=== PATIENT | female | born 1955 | race Caucasian/White ===

== ENCOUNTER → 2023-03-23 | Outpatient (CLI) | payer OTHER ==
[2023-03-23 06:35] LABS: Basophils # (auto) 0 10 ^3/uL (0-0.2); Basophils % (auto) 0.3 % (0.0-2.0); Eosinophils # (auto) 0 10 ^3/uL (0-0.8); Hematocrit 38.6 % (36.0-46.0); Hemoglobin 12.8 g/dL (12.2-16.2); Lymphocytes # (auto) 2.4 10 ^3/uL (0.4-5.4); Lymphocytes % (auto) 21.4 % (10.0-50.0); Mean Corpuscular Hemoglobin 29.8 pg (28.0-32.0); Mean Corpuscular Hgb Conc. 33.1 g/dL (32.0-36.0); Monocytes # (auto) 0.6 10 ^3/uL (0-1.3); Monocytes % (auto) 5.2 % (0.0-12.0); Neutrophils # (auto) 8.3 10 ^3/uL (1.6-8.6); Neutrophils % (auto) 73.1 % (37.0-80.0); Red Blood Cells 4.29 10^6/uL (4.0-5.20); Red Cell Distribution Width 13.1 % (11.8-14.3); White Blood Cell 11.4 10^3/uL (4.4-10.8)
[2023-03-23 06:47] LABS: Urine Bacteria NONE SEEN /hpf (None Seen); Urine Blood Negative /uL (Negative); Urine Specific Gravity 1.015 (1.001-1.035); Urine WBC 2 /hpf (0 - 5)
[2023-03-23 07:07] LABS: Potassium 3.9 mmol/L (3.5-5.1)
[2023-03-23 07:15] LABS: Albumin 4.2 g/dL (3.4-5.0); BUN/Creatinine Ratio 14.4 (10.0-20.0); Bilirubin, Total 0.3 mg/dL (0.2-1.0); Calcium 9.1 mg/dL (8.5-10.1); Total Protein 7.2 g/dL (6.4-8.2); Uric Acid 4.5 mg/dL (2.6-6.0)
[2023-03-23 11:20] LABS: Folate (Folic Acid) 8.3 ng/mL (5.38-24)
== END | disposition home or self-care (01) ==
LOC: LAB 03-17 10:19
PROVIDERS: ATTEND Internal Medicine
DX: D51.9 Vitamin B12 deficiency anemia, unspecified (principal); E55.9 Vitamin D deficiency, unspecified; R73.09 Other abnormal glucose; E61.2 Magnesium deficiency; R68.89 Other general symptoms and signs; R94.6 Abnormal results of thyroid function studies; E79.0 Hyperuricemia without signs of inflammatory arthritis and tophaceous disease; R82.79 Other abnormal findings on microbiological examination of urine; R82.90 Unspecified abnormal findings in urine
CPT/HCPCS: 36415; 80053; 80061; 81001; 82306; 82607; 82746; 83036; 84443; 84550; 85025; 87086

== ENCOUNTER 2023-08-10 09:05 | Emergency (ER) | payer OTHER ==
[~2023-08-10] VITALS: Ht 172.7 cm; Wt 87.3 kg
[2023-08-10 09:09] VITALS: BP 130/85; RESP 20; O2SAT 100
[2023-08-10 09:28] VITALS: PULSE 82
[2023-08-10 09:46] LABS: Basophils # (auto) 0 10 ^3/uL (0-0.2); Basophils % (auto) 0.4 % (0.0-2.0); Eosinophils # (auto) 0 10 ^3/uL (0-0.8); Eosinophils % (auto) 0.2 % (0.0-7.0); Hematocrit 38.5 % (36.0-46.0); Hemoglobin 12.6 g/dL (12.2-16.2); Lymphocytes # (auto) 3.4 10 ^3/uL (0.4-5.4); Lymphocytes % (auto) 32.2 % (10.0-50.0); Mean Corpuscular Hemoglobin 29.7 pg (28.0-32.0); Mean Corpuscular Hgb Conc. 32.8 g/dL (32.0-36.0); Mean Corpuscular Volume 90.6 fL (80.0-100.0); Monocytes # (auto) 1.1 10 ^3/uL (0-1.3); Monocytes % (auto) 10.6 % (0.0-12.0); Neutrophils % (auto) 56.6 % (37.0-80.0); Red Blood Cells 4.25 10^6/uL (4.0-5.20); Red Cell Distribution Width 13.6 % (11.8-14.3); White Blood Cell 10.7 10^3/uL (4.4-10.8)
[2023-08-10 10:18] LABS: Urine Bacteria NONE SEEN /hpf (None Seen); Urine Blood Negative /uL (Negative); Urine Clarity Clear (Clear); Urine Color Colorless (Yellow); Urine Protein, UAD Negative (Negative); Urine Specific Gravity 1.012 (1.001-1.035); Urine Urobilinogen Normal (Negative); Urine WBC <1 /hpf (0 - 5)
[2023-08-10 10:27] LABS: Alanine Aminotransferase 14 U/L (7-40); Albumin 4.6 g/dL (3.2-4.8); Alkaline Phosphatase 72 U/L (46-116); Anion Gap 4 (5-15); Aspartate Aminotransferase < 8 U/L (13-40); BUN/Creatinine Ratio 9.6 (10.0-20.0); Blood Urea Nitrogen 12 mg/dL (9-23); Calcium 9.9 mg/dL (8.7-10.4); Carbon Dioxide 28 mmol/L (20-30); Chloride 107 mmol/L (98-107); Glucose 101 mg/dL (74-106); Lipase 45 U/L (12-53); Potassium 3.8 mmol/L (3.5-5.1); Sodium 139 mmol/L (136-145)
[2023-08-10 10:28] LABS: Bilirubin, Total 0.4 mg/dL (0.2-1.0); Total Protein 6.8 g/dL (5.7-8.2)
== END 2023-08-10 13:07 | disposition home or self-care (01) ==
LOC: ER 09:05
DX: R10.84 Generalized abdominal pain (principal); J44.9 Chronic obstructive pulmonary disease, unspecified; K21.9 Gastro-esophageal reflux disease without esophagitis; E78.5 Hyperlipidemia, unspecified; F17.210 Nicotine dependence, cigarettes, uncomplicated; Z88.2 Allergy status to sulfonamides; Z90.49 Acquired absence of other specified parts of digestive tract; Z90.89 Acquired absence of other organs; Z90.710 Acquired absence of both cervix and uterus; Z98.890 Other specified postprocedural states
CPT/HCPCS: 36415; 74176; 80053; 81001; 82140; 83690; 83735; 85025; 93005

== ENCOUNTER → 2023-09-27 | Outpatient (CLI) | payer OTHER ==
[2023-09-27 07:17] LABS: Basophils # (auto) 0.1 10 ^3/uL (0-0.2); Basophils % (auto) 0.9 % (0.0-2.0); Eosinophils # (auto) 0.1 10 ^3/uL (0-0.8); Eosinophils % (auto) 1.3 % (0.0-7.0); Hemoglobin 12.6 g/dL (12.2-16.2); Lymphocytes # (auto) 2.8 10 ^3/uL (0.4-5.4); Lymphocytes % (auto) 44.6 % (10.0-50.0); Mean Corpuscular Hemoglobin 29.6 pg (28.0-32.0); Mean Corpuscular Hgb Conc. 32.3 g/dL (32.0-36.0); Mean Corpuscular Volume 91.6 fL (80.0-100.0); Monocytes # (auto) 0.6 10 ^3/uL (0-1.3); Monocytes % (auto) 10.2 % (0.0-12.0); Neutrophils # (auto) 2.7 10 ^3/uL (1.6-8.6); Red Blood Cells 4.26 10^6/uL (4.0-5.20); Red Cell Distribution Width 14.8 % (11.8-14.3); White Blood Cell 6.2 10^3/uL (4.4-10.8)
[2023-09-27 07:26] LABS: Urine Bacteria FEW /hpf (None Seen); Urine Blood Negative /uL (Negative); Urine Clarity Clear (Clear); Urine Color Yellow (Yellow); Urine Protein, UAD Negative (Negative); Urine Urobilinogen Normal (Negative); Urine WBC <1 /hpf (0 - 5)
[2023-09-27 08:00] LABS: Alanine Aminotransferase 18 U/L (7-40); Albumin 4.5 g/dL (3.2-4.8); Alkaline Phosphatase 75 U/L (46-116); Anion Gap 7 (5-15); Aspartate Aminotransferase 13 U/L (13-40); Blood Urea Nitrogen 13 mg/dL (9-23); Calcium 9.6 mg/dL (8.5-10.1); Carbon Dioxide 24 mmol/L (20-30); Chloride 110 mmol/L (98-107); Cholesterol 206 mg/dL (< 200); Glucose 111 mg/dL (74-106); HDL Cholesterol 42 mg/dL (40-59); LDL Cholesterol 137 mg/dL (< 100); Sodium 141 mmol/L (136-145); Triglycerides 186 mg/dL (< 150)
[2023-09-27 08:01] LABS: Bilirubin, Total 0.3 mg/dL (0.2-1.0); Total Protein 6.3 g/dL (5.7-8.2)
[2023-09-27 09:01] LABS: Uric Acid 5.8 mg/dL (3.1-7.8)
[2023-09-27 09:03] LABS: Magnesium 1.8 mg/dL (1.6-2.6)
[2023-09-27 10:37] LABS: Folate (Folic Acid) 11.89 ng/mL (>5.38)
== END | disposition home or self-care (01) ==
LOC: LAB 07:00
PROVIDERS: ATTEND Internal Medicine
DX: E61.2 Magnesium deficiency (principal); R78.89 Finding of other specified substances, not normally found in blood; E78.9 Disorder of lipoprotein metabolism, unspecified; R68.89 Other general symptoms and signs; E79.0 Hyperuricemia without signs of inflammatory arthritis and tophaceous disease; R94.6 Abnormal results of thyroid function studies; E85.9 Amyloidosis, unspecified; R82.90 Unspecified abnormal findings in urine; R82.991 Hypocitraturia; R82.79 Other abnormal findings on microbiological examination of urine; D51.9 Vitamin B12 deficiency anemia, unspecified
CPT/HCPCS: 36415; 80053; 80061; 81001; 82306; 82607; 82746; 83036; 83735; 84443; 84550; 85025; 87086

== ENCOUNTER → 2023-12-23 | Outpatient (CLI) | payer OTHER ==
[2023-12-23 09:12] LABS: Basophils # (auto) 0 10 ^3/uL (0-0.2); Basophils % (auto) 0.3 % (0.0-2.0); Eosinophils # (auto) 0.1 10 ^3/uL (0-0.8); Eosinophils % (auto) 0.7 % (0.0-7.0); Hematocrit 38.4 % (36.0-46.0); Hemoglobin 12.5 g/dL (12.2-16.2); Lymphocytes # (auto) 2.8 10 ^3/uL (0.4-5.4); Lymphocytes % (auto) 31.2 % (10.0-50.0); Mean Corpuscular Hemoglobin 29.5 pg (28.0-32.0); Mean Corpuscular Hgb Conc. 32.6 g/dL (32.0-36.0); Mean Corpuscular Volume 90.4 fL (80.0-100.0); Monocytes # (auto) 0.9 10 ^3/uL (0-1.3); Monocytes % (auto) 9.9 % (0.0-12.0); Neutrophils # (auto) 5.3 10 ^3/uL (1.6-8.6); Neutrophils % (auto) 57.9 % (37.0-80.0); Nucleated Red Blood Cells % 0.1 %; Red Blood Cells 4.25 10^6/uL (4.0-5.20); Red Cell Distribution Width 12.6 % (11.8-14.3); White Blood Cell 9.1 10^3/uL (4.4-10.8)
[2023-12-23 09:42] LABS: Urine Bacteria FEW /hpf (None Seen); Urine Blood Negative /uL (Negative); Urine Clarity HAZY (Clear); Urine Color Straw (Yellow); Urine Protein, UAD Negative (Negative); Urine Specific Gravity 1.008 (1.001-1.035); Urine Urobilinogen Normal (Negative); Urine WBC 96 /hpf (0 - 5); Urine pH 5.5 (5.0-8.0)
[2023-12-23 10:26] LABS: Alanine Aminotransferase 26 U/L (7-40); Albumin 4.4 g/dL (3.2-4.8); Alkaline Phosphatase 78 U/L (46-116); Anion Gap 5 (5-15); Aspartate Aminotransferase 18 U/L (13-40); Blood Urea Nitrogen 17 mg/dL (9-23); Calcium 9.6 mg/dL (8.5-10.1); Carbon Dioxide 28 mmol/L (20-30); Chloride 107 mmol/L (98-107); Cholesterol 184 mg/dL (< 200); Glucose 114 mg/dL (74-106); HDL Cholesterol 51 mg/dL (40-59); LDL Cholesterol 117 mg/dL (< 100); Potassium 3.8 mmol/L (3.5-5.1); Sodium 140 mmol/L (136-145); Triglycerides 121 mg/dL (< 150)
[2023-12-23 10:27] LABS: Total Protein 6.5 g/dL (5.7-8.2)
[2023-12-23 10:36] LABS: Folate (Folic Acid) 11.52 ng/mL (>5.38)
[2023-12-23 10:51] LABS: Uric Acid 5.8 mg/dL (3.1-7.8)
[2023-12-23 10:53] LABS: Magnesium 1.9 mg/dL (1.6-2.6)
[2023-12-23 10:54] LABS: Bilirubin, Total 0.6 mg/dL (0.2-1.0)
== END | disposition home or self-care (01) ==
LOC: LAB 08:47
PROVIDERS: ATTEND Internal Medicine
DX: E61.2 Magnesium deficiency (principal); E78.9 Disorder of lipoprotein metabolism, unspecified; R78.89 Finding of other specified substances, not normally found in blood; R68.89 Other general symptoms and signs; E79.0 Hyperuricemia without signs of inflammatory arthritis and tophaceous disease; R94.6 Abnormal results of thyroid function studies; R82.991 Hypocitraturia; R82.90 Unspecified abnormal findings in urine; D51.9 Vitamin B12 deficiency anemia, unspecified; E85.9 Amyloidosis, unspecified
CPT/HCPCS: 36415; 80053; 80061; 81001; 82306; 82607; 82746; 83036; 83735; 84443; 84550; 85025; 87086

== ENCOUNTER 2024-05-23 14:57 | Inpatient (IN) | payer OTHER ==
[~2024-05-23] VITALS: Ht 172.7 cm; Wt 81.4 kg
[2024-05-23] MEDS: ALBUTEROL SULF 2.5 MG/0.5ML(0.5%) NEB SOLN NEB ONE (15:46)
[2024-05-23] MEDS: IPRATROPIUM BROM 0.5 MG/2.5ML INH SOL NEB ONE (15:46)
[2024-05-23 15:48] VITALS: RESP 20; O2SAT 96
[2024-05-23 15:49] LABS: Basophils # (auto) 0.2 10 ^3/uL (0-0.2); Basophils % (auto) 1.3 % (0.0-2.0); Eosinophils # (auto) 0.8 10 ^3/uL (0-0.8); Eosinophils % (auto) 6.7 % (0.0-7.0); Hematocrit 37.6 % (36.0-46.0); Hemoglobin 12.1 g/dL (12.2-16.2); Lymphocytes # (auto) 1.7 10 ^3/uL (0.4-5.4); Lymphocytes % (auto) 14.8 % (10.0-50.0); Mean Corpuscular Hemoglobin 27.9 pg (28.0-32.0); Mean Corpuscular Hgb Conc. 32.3 g/dL (32.0-36.0); Mean Corpuscular Volume 86.2 fL (80.0-100.0); Monocytes # (auto) 0.9 10 ^3/uL (0-1.3); Monocytes % (auto) 7.4 % (0.0-12.0); Neutrophils # (auto) 8.1 10 ^3/uL (1.6-8.6); Neutrophils % (auto) 69.8 % (37.0-80.0); Red Blood Cells 4.36 10^6/uL (4.0-5.20); White Blood Cell 11.6 10^3/uL (4.4-10.8)
[2024-05-23 16:00] LABS: Chloride 106 mmol/L (98-107); Potassium 4.3 mmol/L (3.5-5.1); Sodium 140 mmol/L (136-145)
[2024-05-23 16:01] LABS: Anion Gap 9 (5-15); Carbon Dioxide 25 mmol/L (20-30)
[2024-05-23 16:02] LABS: Calcium 9.9 mg/dL (8.7-10.4)
[2024-05-23] MEDS: methylPREDNISolone SOD SUCC 125 MG/2 ML VL IV ONE (16:04)
[2024-05-23 16:06] LABS: BUN/Creatinine Ratio 12.7 (10.0-20.0); Blood Urea Nitrogen 16 mg/dL (9-23); Glucose 104 mg/dL (74-106)
[2024-05-23 16:24] LABS: Urine Bacteria FEW /hpf (None Seen); Urine Blood 1+ /uL (Negative); Urine Clarity Ex.Turbid (Clear); Urine Color Light-Orange (Yellow); Urine Mucus FEW (None Seen); Urine Protein, UAD 1+ (Negative); Urine Specific Gravity 1.027 (1.001-1.035); Urine Urobilinogen 3 mg/dL (Negative); Urine WBC 976 /hpf (0 - 5); Urine WBC Clumps PRESENT /hpf (None Seen); Urine pH 5.5 (5.0-9.0)
[2024-05-23] MEDS: cefTRIAXone 1GM/50ML D5W 50 ML IV ONE (17:20)
[2024-05-23] MEDS ORDERED: NITROGLYCERIN 0.4 MG SL TAB SL PRN (21:15)
[2024-05-23] MEDS ORDERED: MORPHINE SULFATE INJ 2 MG/ml SYRG IV PRN (21:15)
[2024-05-23] MEDS: SODIUM CHLORIDE 0.9% 1,000 ML IV SCH (21:17)
[2024-05-23] MEDS: methylPREDNISolone SOD SUCC 40 MG/ML VL IV SCH (21:17)
[2024-05-23] MEDS: FAMOTIDINE (10MG/ML) 2ML VL IV SCH (21:24)
[2024-05-23] MEDS: IPRATROPIUM BROM 0.5 MG/2.5ML INH SOL NEB SCH (22:29)
[2024-05-23] MEDS: ALBUTEROL SULF 2.5 MG/0.5ML(0.5%) NEB SOLN NEB PRN (22:29)
[2024-05-23 22:30] VITALS: PULSE 90; RESP 18; O2SAT 98
[2024-05-23 22:34] VITALS: PULSE 88; RESP 16; O2SAT 98
[2024-05-23] MEDS: TEMAZEPAM 15 MG CAP PO ONE (23:19)
[2024-05-23] MEDS: NICOTINE 14 MG/24HR TOPICAL PATCH TD ONE (23:20)
[2024-05-23] MEDS: AZITHROMYCIN 500MG/ 250ML 250 ML IV ONE (23:24)
[2024-05-23 23:40] VITALS: BP 102/71; PULSE 88; RESP 16; TEMP 98.3; O2SAT 98
[2024-05-24] VITALS (15 sets, daily range): BP systolic 120–148; BP diastolic 65–78; PULSE 48–121; RESP 16–91; TEMP 97.9–98.3; O2SAT 92–99
[2024-05-24] MEDS ORDERED: ALBU2TAB11 PO (01:53)
[2024-05-24] MEDS ORDERED: FENO1CAP3 OR (01:57)
[2024-05-24] MEDS ORDERED: ALPR0.5T7 PO (02:00)
[2024-05-24] MEDS ORDERED: PANT40TA2 PO (02:06)
[2024-05-24] MEDS ORDERED: ALBU2TAB11 NEB (02:06)
[2024-05-24] MEDS ORDERED: FAMO20TA10 PO (02:06)
[2024-05-24] MEDS ORDERED: CHOL20007 PO (02:09)
[2024-05-24 06:04] LABS: Basophils # (auto) 0 10 ^3/uL (0-0.2); Basophils % (auto) 0.2 % (0.0-2.0); Eosinophils # (auto) 0 10 ^3/uL (0-0.8); Eosinophils % (auto) 0.1 % (0.0-7.0); Hematocrit 33.8 % (36.0-46.0); Hemoglobin 11.1 g/dL (12.2-16.2); Lymphocytes # (auto) 0.7 10 ^3/uL (0.4-5.4); Mean Corpuscular Hemoglobin 28.4 pg (28.0-32.0); Mean Corpuscular Volume 85.8 fL (80.0-100.0); Monocytes # (auto) 0.1 10 ^3/uL (0-1.3); Monocytes % (auto) 1.6 % (0.0-12.0); Neutrophils # (auto) 6.6 10 ^3/uL (1.6-8.6); Neutrophils % (auto) 89.1 % (37.0-80.0); Red Blood Cells 3.93 10^6/uL (4.0-5.20); Red Cell Distribution Width 15.7 % (11.8-14.3); White Blood Cell 7.4 10^3/uL (4.4-10.8)
[2024-05-24 06:23] LABS: Alanine Aminotransferase 11 U/L (7-40); Alkaline Phosphatase 105 U/L (46-116); Anion Gap 8 (5-15); Aspartate Aminotransferase 15 U/L (13-40); BUN/Creatinine Ratio 17.9 (10.0-20.0); Bilirubin, Total 0.3 mg/dL (0.2-1.0); Blood Urea Nitrogen 22 mg/dL (9-23); Calcium 9.8 mg/dL (8.7-10.4); Carbon Dioxide 25 mmol/L (20-30); Chloride 107 mmol/L (98-107); Glucose 153 mg/dL (74-106); Potassium 4.6 mmol/L (3.5-5.1); Sodium 140 mmol/L (136-145); Total Protein 6.4 g/dL (5.7-8.2)
[2024-05-24] MEDS: ACETAMINOPHEN 325 MG TAB PO PRN (07:12)
[2024-05-24] MEDS: cefTRIAXone 1GM/50ML D5W 50 ML IV SCH (08:59)
[2024-05-24] MEDS: methylPREDNISolone SOD SUCC 40 MG/ML VL IV SCH (08:59)
[2024-05-24] MEDS: AZITHROMYCIN 500MG/ 250ML 250 ML IV SCH (09:00)
[2024-05-24] MEDS: ALPRAZolam 0.5 MG TAB PO SCH (15:02)
[2024-05-24 16:31] LABS: COVID19 ANTIGEN SOFIA FIA NEGATIVE (NEGATIVE)
[2024-05-24] MEDS ORDERED: ENOXAPARIN SOD 40 MG/0.4 ML SYRINGE SC ONE ×2 (17:45→19:15)
[2024-05-24] MEDS: FUROSEMIDE 20 MG/2 ML VIAL IV ONE (19:59)
[2024-05-24] MEDS: ENOXAPARIN SOD 40 MG/0.4 ML SYRINGE SC ONE (20:00)
[2024-05-25] VITALS (15 sets, daily range): BP systolic 128–169; BP diastolic 63–90; PULSE 72–112; RESP 16–20; TEMP 98–98.5; O2SAT 91–100
[2024-05-25 06:46] LABS: Rapid Influenza A Negative (Negative); Rapid Influenza B Negative (Negative)
[2024-05-25 07:00] LABS: Basophils # (auto) 0 10 ^3/uL (0-0.2); Basophils % (auto) 0.2 % (0.0-2.0); Eosinophils # (auto) 0 10 ^3/uL (0-0.8); Hematocrit 35.8 % (36.0-46.0); Hemoglobin 11.8 g/dL (12.2-16.2); Lymphocytes # (auto) 1.1 10 ^3/uL (0.4-5.4); Lymphocytes % (auto) 8.1 % (10.0-50.0); Mean Corpuscular Hemoglobin 28.4 pg (28.0-32.0); Mean Corpuscular Hgb Conc. 33.1 g/dL (32.0-36.0); Mean Corpuscular Volume 86.1 fL (80.0-100.0); Monocytes # (auto) 0.7 10 ^3/uL (0-1.3); Monocytes % (auto) 5.1 % (0.0-12.0); Neutrophils # (auto) 12.4 10 ^3/uL (1.6-8.6); Neutrophils % (auto) 86.6 % (37.0-80.0); Red Blood Cells 4.16 10^6/uL (4.0-5.20); Red Cell Distribution Width 15.9 % (11.8-14.3); White Blood Cell 14.2 10^3/uL (4.4-10.8)
[2024-05-25 07:07] LABS: Chloride 103 mmol/L (98-107); Sodium 141 mmol/L (136-145)
[2024-05-25 07:08] LABS: Anion Gap 11 (5-15); Calcium 10.3 mg/dL (8.7-10.4); Carbon Dioxide 27 mmol/L (20-30)
[2024-05-25 07:13] LABS: Glucose 142 mg/dL (74-106)
[2024-05-25 07:14] LABS: BUN/Creatinine Ratio 19.3 (10.0-20.0); Blood Urea Nitrogen 23 mg/dL (9-23); LDL Cholesterol 128 mg/dL (< 100); Magnesium 2.1 mg/dL (1.6-2.6); Triglycerides 188 mg/dL (< 150)
[2024-05-25 07:15] LABS: Cholesterol 195 mg/dL (< 200); HDL Cholesterol 41 mg/dL (40-59)
[2024-05-25 07:41] LABS: Erythrocyte Sedimentation Rate 20 mm/hr (0-20)
[2024-05-25] MEDS ORDERED: ENOXAPARIN SOD 40 MG/0.4 ML SYRINGE SC SCH ×2 (10:00)
[2024-05-25] MEDS: ENOXAPARIN SOD 40 MG/0.4 ML SYRINGE SC SCH (10:08)
[2024-05-25] MEDS: DOXYCYCLINE 100 MG TAB/CAP PO SCH (12:17)
[2024-05-25] MEDS: MAGNESIUM SULFATE 1GM/100ML 100 ML IV ONE (12:18)
[2024-05-25] MEDS: FUROSEMIDE 20 MG/2 ML VIAL IV ONE (20:39)
[2024-05-25] MEDS: METOPROLOL TARTRATE 50 MG TAB PO SCH (21:45)
[2024-05-25] MEDS: LEVALBUTEROL HCL 1.25 MG/3 ML NEB NEB SCH (22:22)
[2024-05-26] VITALS (12 sets, daily range): BP systolic 120–154; BP diastolic 62–74; PULSE 59–92; RESP 16–20; TEMP 97.6–98.7; O2SAT 89–96
[2024-05-26 06:18] LABS: Chloride 102 mmol/L (98-107); Potassium 4.1 mmol/L (3.5-5.1); Sodium 139 mmol/L (136-145)
[2024-05-26 06:19] LABS: Anion Gap 7 (5-15); Calcium 9.9 mg/dL (8.7-10.4); Carbon Dioxide 30 mmol/L (20-30)
[2024-05-26 06:20] LABS: Basophils # (auto) 0 10 ^3/uL (0-0.2); Basophils % (auto) 0.1 % (0.0-2.0); Eosinophils # (auto) 0 10 ^3/uL (0-0.8); Hematocrit 35.6 % (36.0-46.0); Hemoglobin 11.8 g/dL (12.2-16.2); Lymphocytes % (auto) 10.9 % (10.0-50.0); Mean Corpuscular Hemoglobin 28.4 pg (28.0-32.0); Mean Corpuscular Hgb Conc. 33.1 g/dL (32.0-36.0); Mean Corpuscular Volume 85.6 fL (80.0-100.0); Monocytes # (auto) 0.4 10 ^3/uL (0-1.3); Neutrophils # (auto) 8.2 10 ^3/uL (1.6-8.6); Red Blood Cells 4.15 10^6/uL (4.0-5.20); Red Cell Distribution Width 15.2 % (11.8-14.3); White Blood Cell 9.6 10^3/uL (4.4-10.8)
[2024-05-26 06:24] LABS: BUN/Creatinine Ratio 19.3 (10.0-20.0); Blood Urea Nitrogen 21 mg/dL (9-23); Glucose 149 mg/dL (74-106)
[2024-05-26] MEDS: LEVALBUTEROL HCL 1.25 MG/3 ML NEB NEB SCH (06:46)
[2024-05-26] MEDS: CEFEPIME 1GM/ 50ML 50 ML IV ONE (09:19)
[2024-05-26] MEDS: ONDANSETRON HCL 4 MG/2 ML VIAL IV PRN (12:26)
[2024-05-26] MEDS: CEFEPIME 1GM/ 50ML 50 ML IV SCH (17:55)
[2024-05-27] VITALS (15 sets, daily range): BP systolic 126–157; BP diastolic 69–85; PULSE 54–83; RESP 15–20; TEMP 97.5–98.4; O2SAT 91–96
[2024-05-27 06:19] LABS: Basophils # (auto) 0 10 ^3/uL (0-0.2); Basophils % (auto) 0.1 % (0.0-2.0); Eosinophils # (auto) 0 10 ^3/uL (0-0.8); Hematocrit 37.3 % (36.0-46.0); Hemoglobin 12.6 g/dL (12.2-16.2); Lymphocytes # (auto) 1.4 10 ^3/uL (0.4-5.4); Lymphocytes % (auto) 13.4 % (10.0-50.0); Mean Corpuscular Hemoglobin 28.9 pg (28.0-32.0); Mean Corpuscular Hgb Conc. 33.9 g/dL (32.0-36.0); Mean Corpuscular Volume 85.3 fL (80.0-100.0); Monocytes # (auto) 0.6 10 ^3/uL (0-1.3); Monocytes % (auto) 5.5 % (0.0-12.0); Neutrophils # (auto) 8.2 10 ^3/uL (1.6-8.6); Nucleated Red Blood Cells % 0.1 %; Red Blood Cells 4.37 10^6/uL (4.0-5.20); Red Cell Distribution Width 15.2 % (11.8-14.3); White Blood Cell 10.1 10^3/uL (4.4-10.8)
[2024-05-27 06:31] LABS: Anion Gap 7 (5-15); Carbon Dioxide 28 mmol/L (20-30); Chloride 104 mmol/L (98-107); Potassium 4.1 mmol/L (3.5-5.1); Sodium 139 mmol/L (136-145)
[2024-05-27 06:32] LABS: Calcium 9.9 mg/dL (8.7-10.4)
[2024-05-27 06:37] LABS: Blood Urea Nitrogen 21 mg/dL (9-23); Glucose 149 mg/dL (74-106)
[2024-05-27 06:37] LABS: Base Excess 1.4 mmol/L (-2.0-2.0)
[2024-05-27 07:11] LABS: BUN/Creatinine Ratio 18.6 (10.0-20.0)
[2024-05-27] MEDS ORDERED: LEVALBUTEROL HCL 1.25 MG/3 ML NEB NEB PRN (14:15)
[2024-05-27] MEDS: methylPREDNISolone SOD SUCC 40 MG/ML VL IV SCH (16:05)
[2024-05-27] MEDS: MEROPENEM 1GM IVPB 50 ML IV SCH (17:32)
[2024-05-27] MEDS: BUDESONIDE (INHALATION) 0.5 MG/2 ML NEB NEB SCH (23:04)
[2024-05-28] VITALS (19 sets, daily range): BP systolic 117–154; BP diastolic 64–89; PULSE 60–93; RESP 14–85; TEMP 97.7–98.7; O2SAT 91–98
[2024-05-28 11:03] LABS: Basophils # (auto) 0 10 ^3/uL (0-0.2); Basophils % (auto) 0.1 % (0.0-2.0); Eosinophils # (auto) 0 10 ^3/uL (0-0.8); Hematocrit 37.9 % (36.0-46.0); Hemoglobin 12.4 g/dL (12.2-16.2); Lymphocytes # (auto) 0.8 10 ^3/uL (0.4-5.4); Lymphocytes % (auto) 6.8 % (10.0-50.0); Mean Corpuscular Hemoglobin 28.1 pg (28.0-32.0); Mean Corpuscular Hgb Conc. 32.7 g/dL (32.0-36.0); Mean Corpuscular Volume 85.8 fL (80.0-100.0); Monocytes # (auto) 0.4 10 ^3/uL (0-1.3); Monocytes % (auto) 3.8 % (0.0-12.0); Neutrophils # (auto) 10.1 10 ^3/uL (1.6-8.6); Neutrophils % (auto) 89.3 % (37.0-80.0); Nucleated Red Blood Cells % 0.1 %; Red Blood Cells 4.42 10^6/uL (4.0-5.20); Red Cell Distribution Width 15.2 % (11.8-14.3); White Blood Cell 11.3 10^3/uL (4.4-10.8)
[2024-05-28 11:13] LABS: Chloride 102 mmol/L (98-107); Sodium 137 mmol/L (136-145)
[2024-05-28 11:14] LABS: Anion Gap 10 (5-15); Carbon Dioxide 25 mmol/L (20-30)
[2024-05-28 11:15] LABS: Calcium 9.8 mg/dL (8.7-10.4)
[2024-05-28 11:19] LABS: BUN/Creatinine Ratio 20.9 (10.0-20.0); Blood Urea Nitrogen 23 mg/dL (9-23); Glucose 224 mg/dL (74-106)
[2024-05-28] MEDS: MEROPENEM 1GM IVPB 50 ML IV SCH (14:09)
[2024-05-28] MEDS: diphenhdrAMINE HCL 50 MG/1 ML VL IV PRN (14:10)
[2024-05-28] MEDS: NICOTINE 21MG/24 HR TOPICAL PATCH TD SCH (18:21)
[2024-05-29] VITALS (22 sets, daily range): BP systolic 93–146; BP diastolic 51–79; PULSE 58–75; RESP 15–20; TEMP 98.2–98.7; O2SAT 16–100
[2024-05-29 06:34] LABS: Basophils # (auto) 0 10 ^3/uL (0-0.2); Basophils % (auto) 0.1 % (0.0-2.0); Eosinophils # (auto) 0 10 ^3/uL (0-0.8); Lymphocytes # (auto) 1.2 10 ^3/uL (0.4-5.4); Lymphocytes % (auto) 9.6 % (10.0-50.0); Mean Corpuscular Hgb Conc. 32.6 g/dL (32.0-36.0); Mean Corpuscular Volume 85.9 fL (80.0-100.0); Monocytes # (auto) 0.6 10 ^3/uL (0-1.3); Monocytes % (auto) 4.9 % (0.0-12.0); Neutrophils # (auto) 11.1 10 ^3/uL (1.6-8.6); Neutrophils % (auto) 85.4 % (37.0-80.0); Red Cell Distribution Width 15.2 % (11.8-14.3)
[2024-05-29 06:46] LABS: Anion Gap 6 (5-15); Calcium 9.7 mg/dL (8.7-10.4); Carbon Dioxide 27 mmol/L (20-30); Chloride 105 mmol/L (98-107); Potassium 4.5 mmol/L (3.5-5.1); Sodium 138 mmol/L (136-145)
[2024-05-29 06:52] LABS: BUN/Creatinine Ratio 25.5 (10.0-20.0); Blood Urea Nitrogen 25 mg/dL (9-23); Glucose 145 mg/dL (74-106)
[2024-05-29] MEDS: DOCUSATE SOD 100 MG CAP PO PRN (09:22)
[2024-05-29] MEDS: ERGOCALCIFEROL 50,000 UNIT(1.25MG) CAP PO SCH (09:40)
[2024-05-29] MEDS ORDERED: THROAT LOZENGES(CEPASTAT) MT PRN (11:00)
[2024-05-29] MEDS ORDERED: guaiFENesin-DM 100/10mg/5ml SYR PO PRN (11:00)
[2024-05-29] MEDS: methylPREDNISolone SOD SUCC 40 MG/ML VL IV SCH (11:00)
[2024-05-29] MEDS: IOHEXOL 350 MG/ML 100ML IJ ONE (15:59)
[2024-05-30] VITALS (11 sets, daily range): BP systolic 125–145; BP diastolic 66–80; PULSE 58–75; RESP 16–18; TEMP 98.2–98.5; O2SAT 18–98
[2024-05-30 06:33] LABS: Basophils # (auto) 0 10 ^3/uL (0-0.2); Basophils % (auto) 0.1 % (0.0-2.0); Eosinophils # (auto) 0 10 ^3/uL (0-0.8); Eosinophils % (auto) 0.1 % (0.0-7.0); Hematocrit 36.3 % (36.0-46.0); Hemoglobin 11.8 g/dL (12.2-16.2); Lymphocytes # (auto) 2.9 10 ^3/uL (0.4-5.4); Mean Corpuscular Hemoglobin 27.9 pg (28.0-32.0); Mean Corpuscular Hgb Conc. 32.4 g/dL (32.0-36.0); Monocytes # (auto) 1.1 10 ^3/uL (0-1.3); Monocytes % (auto) 8.3 % (0.0-12.0); Neutrophils # (auto) 9.2 10 ^3/uL (1.6-8.6); Neutrophils % (auto) 69.5 % (37.0-80.0); Red Blood Cells 4.22 10^6/uL (4.0-5.20); Red Cell Distribution Width 15.3 % (11.8-14.3); White Blood Cell 13.3 10^3/uL (4.4-10.8)
[2024-05-30 06:35] LABS: Chloride 105 mmol/L (98-107); Sodium 138 mmol/L (136-145)
[2024-05-30 06:36] LABS: Anion Gap 5 (5-15); Calcium 9.3 mg/dL (8.7-10.4); Carbon Dioxide 28 mmol/L (20-30)
[2024-05-30 06:41] LABS: BUN/Creatinine Ratio 28.4 (10.0-20.0); Blood Urea Nitrogen 25 mg/dL (9-23); Glucose 85 mg/dL (74-106)
[2024-05-30] MEDS: predniSONE 20 MG TAB PO SCH (09:21)
[2024-05-30] MEDS ORDERED: BUDE0.5S IN (14:06)
[2024-05-30] MEDS ORDERED: DOXY1CAP57 PO (14:06)
[2024-05-30] MEDS ORDERED: METH4PAK PO (14:06)
[2024-05-30] MEDS ORDERED: NYSTOIN TOP (14:06)
[2024-05-30] MEDS ORDERED: IPR002IS HHN (15:56)
[2024-05-30] MEDS ORDERED: METO25TA93 PO (15:56)
[2024-05-30] MEDS ORDERED: LEVA3NEB IN (15:56)
== END 2024-05-30 16:11 | disposition home or self-care (01) | DRG 871 ==
LOC: ER 14:57 → TELE 21:11 → TELE-WESTW 21:35 → WEST WING 05-24 01:28 → TELE-WESTW 05-24 01:29 → WEST WING 05-24 21:43
PROVIDERS: ADMIT Student in an Organized Health Care Education/Training Program; ATTEND Student in an Organized Health Care Education/Training Program
DX: A41.9 Sepsis, unspecified organism (principal); J96.21 Acute and chronic respiratory failure with hypoxia; N17.0 Acute kidney failure with tubular necrosis; J44.0 Chronic obstructive pulmonary disease with (acute) lower respiratory infection; J44.1 Chronic obstructive pulmonary disease with (acute) exacerbation; N39.0 Urinary tract infection, site not specified; J84.9 Interstitial pulmonary disease, unspecified; Z20.822 Contact with and (suspected) exposure to COVID-19; K21.9 Gastro-esophageal reflux disease without esophagitis; F17.210 Nicotine dependence, cigarettes, uncomplicated; E78.5 Hyperlipidemia, unspecified; I10 Essential (primary) hypertension; F41.9 Anxiety disorder, unspecified; D64.9 Anemia, unspecified; E86.0 Dehydration; Z90.49 Acquired absence of other specified parts of digestive tract; Z90.710 Acquired absence of both cervix and uterus; Z82.49 Family history of ischemic heart disease and other diseases of the circulatory system; Z83.3 Family history of diabetes mellitus; Z82.5 Family history of asthma and other chronic lower respiratory diseases; Z88.5 Allergy status to narcotic agent; Z88.2 Allergy status to sulfonamides
CPT/HCPCS: 36415; 36600; 71045; 71250; 71275; 80048; 80053; 80061; 81001; 82306; 82607; 82805; 83735; 83880; 85025; 85379; 85652; 86141; 87070; 87086; 87205; 87426; 87804; 93970; 94640; 96361; 96365; 96367; 96375; 99291; G0378; J2185; J2405; J3490

== ENCOUNTER 2024-08-25 08:59 | Emergency (ER) | payer OTHER ==
[~2024-08-25] VITALS: Ht 172.7 cm; Wt 80.9 kg
[~2024-08-25 08:59] MED LIST: ALBU2TAB11 NEB; ALBU2TAB11 PO; ALPR0.5T7 PO; BUDE0.5S IN; CHOL20007 PO; FAMO20TA10 PO; FAMO40TA7 PO; FENO134C16 PO; IPR002IS HHN; LEVA3NEB IN; METH4PAK PO; METO25TA93 PO; PANT40TA2 PO; TRAM-626 PO
[2024-08-25 09:45] VITALS: TEMP 98.9; O2SAT 97
[2024-08-25] MEDS: ONDANSETRON ODT 4 MG TAB PO ONE (10:20)
[2024-08-25] MEDS: MORPHINE SULFATE INJ 2 MG/ml SYRG IM ONE (10:21)
[2024-08-25] MEDS ORDERED: MORPHINE SULFATE INJ 2 MG/ml SYRG ONE (10:24)
[2024-08-25] MEDS ORDERED: METH-1182 PO (10:48)
[2024-08-25 10:50] VITALS: BP 144/73; PULSE 78; RESP 17
== END 2024-08-25 10:43 | disposition home or self-care (01) ==
LOC: ER 08:59
DX: G89.18 Other acute postprocedural pain (principal); M79.622 Pain in left upper arm; I10 Essential (primary) hypertension; J44.9 Chronic obstructive pulmonary disease, unspecified; K21.9 Gastro-esophageal reflux disease without esophagitis; E78.5 Hyperlipidemia, unspecified; Z90.49 Acquired absence of other specified parts of digestive tract; Z90.710 Acquired absence of both cervix and uterus; Z88.2 Allergy status to sulfonamides; Z88.5 Allergy status to narcotic agent; Z79.899 Other long term (current) drug therapy
CPT/HCPCS: 73060; 96372; 99283; J2270; Q0162

== ENCOUNTER → 2024-10-11 | Outpatient (CLI) | payer OTHER ==
[~2024-10-11] MED LIST changes: +METH-1182 PO
[2024-10-11 08:23] LABS: Urine Bacteria FEW /hpf (None Seen); Urine Blood 1+ /uL (Negative); Urine Clarity Turbid (Clear); Urine Color Light-Yellow (Yellow); Urine Protein, UAD Negative (Negative); Urine Urobilinogen Normal (Negative); Urine WBC 306 /hpf (0 - 5); Urine pH 5.5 (5.0-9.0)
[2024-10-11 08:25] LABS: Basophils # (auto) 0.1 10 ^3/uL (0-0.2); Basophils % (auto) 0.9 % (0.0-2.0); Eosinophils # (auto) 0.3 10 ^3/uL (0-0.8); Eosinophils % (auto) 3.2 % (0.0-7.0); Hematocrit 37.1 % (36.0-46.0); Hemoglobin 12.2 g/dL (12.2-16.2); Lymphocytes # (auto) 2.4 10 ^3/uL (0.4-5.4); Lymphocytes % (auto) 29.5 % (10.0-50.0); Mean Corpuscular Hemoglobin 27.6 pg (28.0-32.0); Mean Corpuscular Volume 83.7 fL (80.0-100.0); Monocytes # (auto) 0.7 10 ^3/uL (0-1.3); Neutrophils # (auto) 4.6 10 ^3/uL (1.6-8.6); Neutrophils % (auto) 57.4 % (37.0-80.0); Platelet Count (auto) 256 10^3/uL (140-450); Red Blood Cells 4.43 10^6/uL (4.0-5.20); Red Cell Distribution Width 15.2 % (11.8-14.3)
[2024-10-11 08:46] LABS: Alanine Aminotransferase 10 U/L (7-40); Albumin 4.4 g/dL (3.2-4.8); Anion Gap 6 (5-15); Aspartate Aminotransferase 14 U/L (13-40); Calcium 10.1 mg/dL (8.7-10.4); Carbon Dioxide 27 mmol/L (20-31); Glucose 93 mg/dL (74-106); Potassium 4.2 mmol/L (3.5-5.1); Triglycerides 120 mg/dL (< 150)
[2024-10-11 08:47] LABS: Cholesterol 175 mg/dL (< 200); HDL Cholesterol 46 mg/dL (40-59); Total Protein 6.5 g/dL (5.7-8.2)
[2024-10-11 08:51] LABS: Folate (Folic Acid) 5.56 ng/mL (>5.38); T3 Total 0.86 ng/mL (0.60-1.81)
[2024-10-11 08:52] LABS: Alkaline Phosphatase 118 U/L (46-116); Bilirubin, Total 0.3 mg/dL (0.2-1.0); Blood Urea Nitrogen 27 mg/dL (9-23); Chloride 112 mmol/L (98-107); Free T3 3.04 pg/mL (2.3-4.2); LDL Cholesterol 108 mg/dL (< 100); Sodium 145 mmol/L (136-145)
[2024-10-11 08:53] LABS: Free T4 (Free Thyroxine) 1.21 ng/dL (0.89-1.76)
== END | disposition home or self-care (01) ==
LOC: LAB 07:49
PROVIDERS: ATTEND Internal Medicine
DX: R79.89 Other specified abnormal findings of blood chemistry (principal); R68.89 Other general symptoms and signs; D51.9 Vitamin B12 deficiency anemia, unspecified; E55.9 Vitamin D deficiency, unspecified; R73.09 Other abnormal glucose; R94.6 Abnormal results of thyroid function studies; E61.2 Magnesium deficiency; R82.90 Unspecified abnormal findings in urine
CPT/HCPCS: 36415; 80053; 80061; 81001; 82306; 82607; 82746; 84439; 84480; 84481; 84550; 85025; 87086

== ENCOUNTER 2025-08-21 14:06 | Inpatient (IN) | payer OTHER ==
[~2025-08-21] VITALS: Ht 165.1 cm; Wt 86.0 kg
--- NOTE | 2025-08-21 14:58 | ED.PDOC ---
Musculoskeletal HPI Comments 69-year-old female who presents to the ED for chief complaint of lower extremity pain. Patient presents with spouse states that patient had PCP appointment earlier today but had difficulty getting out of car due to left hip and left lower extremity pain. Patient states she has been having left hip pain and has have being difficulty ambulating since last Wednesday, past six days. Patient now on the ED presents in wheelchair and has noted swelling to the left lower extremity. Patient otherwise denies any recent injury or associated fall. Patient does state she has history history of COPD and is on home oxygen and states she is active smoker. Patient has known history of osteoporosis. Patient in the ED has not noted blood pressure 168/75 with otherwise stable vitals in the ED. Patient otherwise denies any other symptoms. Chief Complaint: Lower Extremity Time Seen by MD: 15:01 Primary Care Provider: TERESITA Ambriz Notes: Medications, Allergies Allergies: Coded Allergies: Hydrocodone (Verified Allergy, Unknown, 05/23/24) Sulfa Antibiotics (Verified Allergy, Unknown, 10/31/23) Home Meds Active Scripts Methocarbamol (Methocarbamol) 750 Mg Tab, 750 MG PO BID, #30 TAB Prov:ANA HANEY 08/25/24 Tramadol HCl (Tramadol HCl) 50 Mg Tab, 50 MG PO Q6HP PRN, #30 TAB Prov:DARSHAN LEUNG MD 06/12/24 Levalbuterol HCl (Levalbuterol) 1.25 Mg/0.5 Ml Neb, 1.25 MG IN Q4HP PRN for 1 Day, INH Prov:SHA SAEED 05/30/24 Ipratropium [place] (Ipratropium [place]) 0.02 % Clarita, 0.5 % HHN Q4HP PRN for 1 Day, ML Prov:SHA SAEED 05/30/24 Metoprolol Succinate (Metoprolol Succinate Er) 25 Mg Tab, 50 MG PO DAILY for 30 Days, #60 TAB Prov:SHA SAEED 05/30/24 Budesonide (Inhalation) (Budesonide) 0.5 Mg/2 Ml Tori, 0.5 MG IN BID, #1 ML Prov:SHA SAEED 05/30/24 Methylprednisolone (Medrol Dosepak) 4 Mg Jaydon, 4 MG PO UD for 5 Days, #21 TAB UAD Prov:SHA SAEED RESIDENT 05/30/24 Reported Medications Famotidine (Famotidine) 40 Mg Tab, 1 TAB PO DAILY 06/07/24 Fenofibrate Micronized (Fenofibrate) 134 Mg Cap, 1 CAP PO DAILY 06/07/24 Cholecalciferol (VITAMIN D3) 2,000 Unit Tab, 1 TAB PO DAILY, #30 TAB 5 Refills 05/24/24 Albuterol Sulfate (Albuterol Sulfate) 2 Mg Tab, 90 MCG PO Q6HP PRN for SHORTNESS OF BREATH, MG 05/24/24 Albuterol Sulfate (Albuterol Sulfate) 2 Mg Tab, 2.5 MG NEB Q4HR for To help with breathing, MG 05/24/24 Famotidine (PEPCID TABLET) 20 Mg Tb, 1 TAB PO BID for GERD, #60 TAB 5 Refills 05/24/24 Pantoprazole Sodium Sesquihydr (Protonix) 40 Mg Tab, 40 MG PO DAILY, #30 TAB 05/24/24 Alprazolam (Alprazolam) 0.5 Mg Tab, 0.5 TAB PO TID for ANXIETY, #30 TAB 05/24/24 Information Source: Patient, Spouse Mode of Arrival: Wheelchair Brought in by: Spouse Location: Left Extremity Location: Leg Past Medical History PAST MEDICAL HISTORY: COPD, GERD, High Lipids, HTN Surgical History: Appendectomy, Cholecystectomy, Hysterectomy, Tonsillectomy [employer]CH[employer]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 History Family History Family History: Reviewed,noncontributory to illness, Family hx of DM, Family hx of Cancer, Family hx of heart zonia Social History Smoker: Non-Smoker Alcohol: Denies ETOH Use Drugs: Denies Drug Use Lives In: Home Constitutional: denies: chills, diaphoresis, fatigue, fever, malaise, sweats, weakness, others EENTM: denies: blurred vision, double vision, ear bleeding, ear discharge, ear drainage, ear pain, ear ringing, eye pain, eye redness, hearing loss, mouth des n, mouth swelling, nasal discharge, nose bleeding, nose congestion, nose pain, photophobia, tearing, throat pain, throat swelling, voice changes, others Respiratory: denies: cough, hemoptysis, orthopnea, SOB at rest, shortness of breath, SOB with excertion, stridor, wheezing, others Cardiovascular: denies: chest pain, dizzy spells, diaphoresis, Dyspnea on exertion, edema, irregular heart beat, left arm pain, lightheadedness, palpitations, PND, syncope, others Gastrointestinal: denies: abdomen distended, abdominal pain, blood streaked bowels, constipated, diarrhea, dysphagia, difficulty swallowing, hematemesis, melena, nausea, poor appetite, poor fluid intake, rectal bleeding, rectal pain, vomiting, others Genitourinary: denies: abnormal vagina bleeding, burning, dyspareunia, dysuria, flank pain, frequency, hematuria, incontinence, pain, , vagina discharge, urgency, others Neurological: denies: dizziness, fainting, headache, left sided numbness, left sided weakness, numbness, paresthesia, pre-existing deficit, right sided numbness, right sided weakness, seizure, speech problems, tingling, tremors, weakness, others Musculoskeletal: reports: joint pain (Left lower extremity), joint swelling (Left lower extremity) Integumetry: denies: bruises, change in color, change in hair/nails, dryness, laceration, lesions, lumps, rash, wounds, others Allergic/Immunocompromised: denies: Difficulty Healing, Frequent Infections, Hives, Itching, others Hematologic/Lymphatic: denies: anemia, blood clots, easy bleeding, easy bruising, swollen glands, others Endocrine: denies: excessive hunger, excessive sweating, excessive thirst, excessive urination, flushing, intolerance to cold, intolerance to heat, unexplained weight gain, unexplained weight loss, others Psychiatric: denies: anxiety, bipolar disorder, depression, hopeless, panic disorder, schizophrenia, sleepless, suicidal, others All Other Systems: Reviewed and Negative Physical Exam General Appearance: Moderate Distress HEENT: Normal ENT Inspection, Pharynx Normal, TMs Normal Neck: Full Range of Motion, Non-Tender, Normal, Normal Inspection Respiratory: Chest Non-Tender, Lungs Clear, No Accessory Muscle Use, No Respiratory Distress, Normal Breath Sounds Cardiovascular: No Edema, No JVD, No Murmur, No Gallop, Normal Peripheral Pulses, Regular Rate/Rhythm Breast Exam: Deferred Gastrointestinal: No Organomegaly, Non Tender, No Pulsatile Mass, Normal Bowel Sounds, Soft Genitalia: Deferred Pelvic: Deferred Rectal: Deferred Extremities: No calf tenderness, Normal capillary refill, Normal range of motion, Non-tender, No pedal edema, Swelling (Left lower extremity) Musculoskeletal : Apperance: Normal Neurologic: Alert, priming powder premix blender II-XII nml as Tested, No Motor Deficits, Normal Affect, Normal Mood, No Sensory Deficits Cerebellar Function: NOT DONE Reflexes: NOT DONE Skin: Dry, Normal Color, Warm Peripheral Pulses: 3+ Radial (R), 3+ Radial (L) Lymphatic: No Adenopathy Was a procedure done? Was a procedure done?: No Differential Diagnosis EXT Differential Diagnosis: Cellulitis, CHF, Deep Vein Thrombosis, DJD, Contusion, Strain, Rheumatoid, Septic, Arthritis X-Ray, Labs, Meds, VS Vital Signs Date Time Temp Pulse Resp B/P (MAP) Pulse Ox O2 Delivery O2 Flow Rate FiO2 08/21/25 14:07 98.4 95 19 168/95 97 98.4 Lab Test 08/21/25 15:08 Range/Units White Blood Count 8.0 4.4-10.8 10^3/uL Red Blood Count 4.23 4.0-5.20 10^6/uL Hemoglobin 11.8 L 12.2-16.2 g/dL Hematocrit 36.2 36.0-46.0 % Mean Corpuscular Volume 85.6 80.0-100.0 fL Mean Corpuscular Hemoglobin 27.8 L 28.0-32.0 pg Mean Corpuscular Hemoglobin Concent 32.4 32.0-36.0 g/dL Red Cell Distribution Width 14.2 11.8-14.3 % Platelet Count 246 140-450 10^3/uL Mean Platelet Volume 8.2 6.9-10.8 fL Neutrophils (%) (Auto) 63.8 37.0-80.0 % Lymphocytes (%) (Auto) 26.9 10.0-50.0 % Monocytes (%) (Auto) 7.4 0.0-12.0 % Eosinophils (%) (Auto) 1.2 0.0-7.0 % Basophils (%) (Auto) 0.7 0.0-2.0 % Neutrophils # (Auto) 5.1 1.6-8.6 10 ^3/uL Lymphocytes # (Auto) 2.1 0.4-5.4 10 ^3/uL Monocytes # (Auto) 0.6 0-1.3 10 ^3/uL Eosinophils # (Auto) 0.1 0-0.8 10 ^3/uL Basophils # (Auto) 0.1 0-0.2 10 ^3/uL Nucleated Red Blood Cells 0.0 % Sodium Level 144 136-145 mmol/L Potassium Level 4.0 3.5-5.1 mmol/L Chloride Level 108 H 98-107 mmol/L Carbon Dioxide Level 26 20-31 mmol/L Anion Gap 10 5-15 Blood Urea Nitrogen 16 9-23 mg/dL Creatinine 1.41 H 0.550-1.02 mg/dL Glomerular Filtration Rate Calc 41 >90 mL/min BUN/Creatinine Ratio 11.3 10.0-20.0 Serum Glucose 94 74-106 mg/dL Calcium Level 10.0 8.7-10.4 mg/dL Troponin I High Sensitivity 11 </=34 ng/L Patient alert. Vitals stable. Came in because of left lower extremity swelling. Answering questions. WBC within normal limits. Blood pressure elevated. Was given clonidine. Cardiac marker within normal limits. Explained to the patient. Continue monitoring. Time of 1ST Reevaluation: 15:35 Reevaluation 1ST: Unchanged Patient Education/Counseling: Diagnosis, Treatment Family Education/Counseling: Diagnosis, Treatment Departure 1 Departure Time of Disposition: 17:08 Impression: Primary Impression: Hypertensive urgency Additional Impression: Swelling of extremity Disposition: ADMITTED INPATIENT Admit to: Med Surg Condition: Guarded Critical Care Note Critical Care Time?: No Stability Stability form required: No Heart Score Heart Score: Heart Score Response (Comments) Value History N/A 0 EKG N/A 0 Age N/A 0 Risk Factors N/A 0 Troponin N/A 0 Total 0 I personally scribed for OLY ROMERO MD ([email or web address]) on 08/21/25 at 14:58. Electronically submitted by Flaco Brooks ([employer]). I personally scribed for OLY ROMERO MD ([email or web address]) on 08/21/25 at 15:04. Electronically submitted by Flaco Brooks ([employer]). OLY ROMERO MD Aug 21, 2025 14:58
[2025-08-21 15:29] LABS: Hematocrit 36.2 % (36.0-46.0); Hemoglobin 11.8 g/dL (12.2-16.2); Mean Corpuscular Hemoglobin 27.8 pg (28.0-32.0); Mean Corpuscular Volume 85.6 fL (80.0-100.0); Nucleated Red Blood Cells % 0.0 %
[2025-08-21 15:36] LABS: Potassium 4.0 mmol/L (3.5-5.1); Sodium 144 mmol/L (136-145)
[2025-08-21 15:37] LABS: Anion Gap 10 (5-15); Calcium 10.0 mg/dL (8.7-10.4); Carbon Dioxide 26 mmol/L (20-31)
[2025-08-21 15:41] LABS: Chloride 108 mmol/L (98-107)
[2025-08-21 15:42] LABS: BUN/Creatinine Ratio 11.3 (10.0-20.0); Blood Urea Nitrogen 16 mg/dL (9-23); Glucose 94 mg/dL (74-106)
[2025-08-21] MEDS: FUROSEMIDE 40 MG/4 ML VIAL IV ONE (18:40)
[2025-08-21] MEDS: ONDANSETRON HCL 4 MG/2 ML VIAL IV ONE (18:41)
[2025-08-21] MEDS: fentaNYL CITRATE 100 MCG/2 ML VL IV ONE (18:42)
--- NOTE | 2025-08-21 20:41 | DVH ---
LEFT LOWER EXTREMITY VENOUS DUPLEX REASON FOR EXAMINATION: Left lower extremity pain and edema. COMPARISON: US BILAT LOWER DVT on DOS: 05/24/24 TECHNIQUE: Using real-time freeze-frame technique with a high-frequency transducer, multiple longitudinal and transverse sections were obtained. Simultaneous color flow and spectral Doppler imaging was performed. FINDINGS: There is good visualization of the deep venous system with no intraluminal filling defects identified. Normal venous compressibility is seen and there is flow augmentation. Color flow Doppler imaging is unremarkable. IMPRESSION: NO EVIDENCE OF DEEP VENOUS THROMBOSIS. OY FILLER ROSA
[2025-08-21 20:57] LABS: Urine Protein, UAD Negative (Negative)
--- NOTE | 2025-08-21 21:05 | DVH ---
CLINICAL INDICATION: pain TECHNIQUE: 1-view XY PELVIS AP Comparison: None FINDINGS: No acute fracture or dislocation. Mild degenerative changes. Right lower quadrant surgical clips. IMPRESSION: 1. No acute osseous abnormality of the pelvis.
[2025-08-21] MEDS ORDERED: IPRATROPIUM BROM 0.5 MG/2.5ML INH SOL NEB PRN (22:00)
[2025-08-21] MEDS ORDERED: ALBUTEROL SULF 2.5 MG/0.5ML(0.5%) NEB SOLN NEB PRN (22:00)
[2025-08-21 22:43] LABS: Alanine Aminotransferase 16 U/L (7-40); Albumin 4.8 g/dL (3.2-4.8); Alkaline Phosphatase 131 U/L (46-116); Bilirubin, Direct < 0.1 mg/dL (<0.3); Bilirubin, Total 0.3 mg/dL (0.2-1.0); Magnesium 1.8 mg/dL (1.6-2.6); Total Protein 7.4 g/dL (5.7-8.2)
[2025-08-21 22:48] LABS: Benzodiazephine Screen, Urine Pos (NEGATIVE)
[2025-08-21 22:50] LABS: Amphetamine Screen, Urine Neg (NEGATIVE); Barbiturate Scree,Urine Neg (NEGATIVE); Cannabinoid Screen, Urine Neg (NEGATIVE); Cocaine Screen, Urine Neg (NEGATIVE); Opiate Scree,Urine Neg (NEGATIVE); Phencyclidine Screen, Urine Neg (NEGATIVE)
--- NOTE | 2025-08-21 22:58 | DVH ---
CHEST RADIOGRAPH Indication: sob Technique: 1 view Comparison: XY CHEST PORTABLE on DOS: 06/07/24, XY CHEST PORTABLE on DOS: 05/30/24, XY CHEST PORTABLE on DOS: 05/23/24, XY CHEST PORTABLE on DOS: 04/20/24 FINDINGS: Lines and Tubes: None. Lungs/Pleura: Lungs appear hyperexpanded. No focal consolidation, pleural effusion or pneumothorax. Cardiomediastinum: Unremarkable. Other: No acute osseous abnormality. Partially imaged left humerus internal fixation hardware. IMPRESSION: Emphysematous appearing lungs without acute cardiopulmonary abnormality.
[2025-08-21 23:16] VITALS: BP 147/80; PULSE 78; RESP 16; O2SAT 96
--- NOTE | 2025-08-21 23:16 | DVH ---
EXAMINATION: CT LEFT LOWER EXTREMITY W/O CON INDICATION: left thigh pain and swelling COMPARISON: None TECHNIQUE: CT of the left femur was performed without contrast. Volume transverse images were obtaine d reconstructed in multiple planes using bone and soft tissue algorithms. CTDI vol: 15 mGy. DLP: 997 mGy-cm. FINDINGS: No acute fracture. The hip and knee joints are congruent with [id number] osteoarthrosis. No mahsa nt effusion. 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 Trace anterior subcutaneous stranding of the distal thigh superior to the patella. No acute finding o f the imaged pelvic contents, muscles or tendons. Colonic diverticulosis. IMPRESSION: 1. Trace anterior left distal thigh subcutaneous stranding. No acute osseous abnormality. 2. 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
[2025-08-22] VITALS (9 sets, daily range): BP systolic 119–145; BP diastolic 66–84; PULSE 55–74; RESP 14–19; TEMP 97.2–98.4; O2SAT 93–99
[2025-08-22] MEDS: METOPROLOL SUCCINATE XL 50 MG TAB PO ONE (00:15)
[2025-08-22] MEDS: NICOTINE 21MG/24 HR TOPICAL PATCH TD ONE (00:22)
[2025-08-22] MEDS: ALPRAZolam 0.5 MG TAB PO ONE (00:22)
[2025-08-22] MEDS: PANTOPRAZOLE 40 MG/10 ML VIAL INJ IV ONE (00:23)
--- NOTE | 2025-08-22 00:37 | DVHHPRES ---
History of Present Illness Resident Creating Document: CARLEEN IVY RESIDENT History of Present Illness 69-year-old female with a history of osteoporosis, COPD on 3 L home oxygen, CKD, hypertension, hyperlipidemia, GERD, anxiety and uterine prolapse presented to the ED with acute worsening left hip and leg pain. She reports intermittent left hip pain since last Wednesday, which became severe this morning, rendering her unable to bear weight,. Pain is 10/10, radiates down the entire left leg, associated with swelling and aggravated by movement or weight-bearing. No relieving factors. Due to known osteoporosis and swelling her PCP advised ED evaluation for possible fracture. She also reports urinary frequency and hesitancy, similar to prior UTI last month. Denies dysuria or burning, nausea, fever, chills, vomiting or any abdominal pain. Vitals on admission BP 147/80, HR 78, temp 98.7, SpO2 96 on 3 L oxygen. Labs show BUN 16, creatinine 1.41. Patient is being admitted for further evaluation of suspected left hip pathology and management of urinary symptoms with concern for recurrent UTI. Past medical history: As stated above Past surgical history: Left proximal humerus ORIF, appendectomy, cholecyste ctomy, hysterectomy, bilateral tubal ligation, right leg reconstruction surgery for tendon and ligament repair, benign breast lump of the left breast removed Family history: Siblings had lung cancer, stomach cancer, diabetes mellitus, CHF, mother due to CHF, father had emphysema Social history: Patient smokes 5 cigarettes/day and uses 2 nicotine patches 21 mg/day for the last year. She smoked 1 pack per day for 40 years. She denies drinking alcohol, or using any other illicit drugs Allergies: [place]( rashes, and swell up, nausea), sulfa antibiotics( face swelling), Dilaudid ( burning sensation all over the body) Home medication: Alprazolam 0.5 mg b.i.d., Zofran, pantoprazole, vitamin D3, fenofibrate, metoprolol 50 mg, inhalers for COPD PCP: Dr. Sanchez code status: DNR / DNI; no shock, okay for pressors Review of Systems Constitutional: No: Fever, Chills, Sweats, Weakness, Malaise, Other Eyes: No: Pain, Vision change, Conjunctivae inflammation, Eyelid inflammation, Other, Redness ENT: No: Ear pain, Ear discharge, Nose pain, Nose discharge, Nose congestion, Mouth pain, Mouth swelling, Throat pain, Throat swelling, Other Respiratory: No: Cough, Dry, Shortness of breath, SOB with excertion, Wheezing, Hemoptysis, Pleuritic Pain, Sputum, Wheezing, Other Cardiovascular: No: Chest Pain, Palpitations, Orthopnea, Paroxysmal Noc. Dyspnea, Edema, Lt Headedness, Other Gastrointestinal: No: Nausea, Vomiting, Abdominal Pain, Diarrhea, Constipation, Melena, Hematochezia, Other Genitourinary: No Dysuria; Frequency; No Incontinence, No Hematuria, No Retention; Other (hesitancy) Musculoskeletal: other (left hip pain), leg pain Skin: No: Rash, Lesions, Jaundice, Bruising, Other Neurological: No: Weakness, Numbness, Incoordination, Change in speech, Co nfusion, Seizures, Other Allergies: Coded Allergies: Hydrocodone (Verified Allergy, Unknown, 05/23/24) Sulfa Antibiotics (Verified Allergy, Unknown, 10/31/23) Medications Current Medications Medications Dose Ordered Sig/Roxanna Route Start Time Stop Time Status Last Admin Dose Admin Pantoprazole Sodium 40 mg DAILY IV 08/22/25 10:00 Ondansetron HCl 4 mg Q4HPRN PRN IV 08/21/25 22:00 Ipratropium [place] 0.5 mg Q4HPRN PRN NEB 08/21/25 22:00 Albuterol 2.5 mg Q4HPRN PRN NEB 08/21/25 22:00 Ceftriaxone Sodium 50 ml @ 100 mls/hr DAILY@2100 IV 08/22/25 21:00 Metoprolol Succinate 50 mg DAILY PO 08/22/25 10:00 Alprazolam 0.5 mg BID PO 08/22/25 10:00 Cholecalciferol 2,000 unit DAILY PO 08/22/25 10:00 Patient Own Medication 1 cap DAILY PO 08/22/25 10:00 UNV Enoxaparin Sodium 40 mg DAILY SC 08/22/25 10:00 Exam Vital Signs Vital Signs Date Time Temp Pulse Resp B/P (MAP) Pulse Ox O2 Delivery O2 Flow Rate FiO2 08/22/25 00:15 137/60 08/22/25 00:12 75 18 96 08/21/25 23:16 0.0 21 10/28/25 19:22 Room Air* 08/21/25 17:52 98.7 98.7 Exam Pt is sitting on a wheelchair General Appearance: Alert, Oriented X3, Cooperative, in acute distress HEENT: Atraumatic, Mucous membranes moist/pink Respiratory: Clear to auscultation, Normal air movement, No added sounds Cardiovascular: Regular rate, Normal S1, Normal S2, No murmurs Abdominal: Active bowel sounds, Soft, no distention, no tenderness Extremities: No edema, Normal pulses, tenderness on mild palpation of the left lateral thigh, left calf, no erythema Skin: No Significant rash, except past surgical scars Neuro: Normal speech, sensorimotor deficits none Psych/Mental Status: Mental status NL, Mood NL Labs/Xrays Labs Test 08/21/25 19:28 08/21/25 15:08 Range/Units Urine Color Colorless Yellow Urine Clarity Clear Clear Urine pH 5.5 5.0-9.0 Urine Specific [place] 1.008 1.001-1.035 Urine Protein Negative Negative Urine Ketones Negative Negative Urine Blood Negative Negative /uL Urine Nitrite Negative Negative Urine Bilirubin Negative Negative Urine Urobilinogen Normal Negative mg/dL Urine Leukocyte Esterase 2+ Negative /uL Urine RBC 2 0 - 4 /hpf Urine Microscopic WBC 18 H 0-5 /HPF Urine Squamous Epithelial Cells None seen <5 /hpf Urine Bacteria Few H None Seen /hpf Urine Hyaline Casts Few 0 - 2 /lpf Urine Glucose Normal Normal mg/dL Urine Opiates Screen Neg NEGATIVE Urine Fentanyl Screen Pos NEGATIVE Urine Barbiturates Screen Neg NEGATIVE Urine Phencyclidine Screen Neg NEGATIVE Urine Amphetamines Screen Neg NEGATIVE Urine Benzodiazepines Screen Pos NEGATIVE Urine Cocaine Screen Neg NEGATIVE Urine Cannabinoids Screen Neg NEGATIVE White Blood Count 8.0 4.4-10.8 10^3/uL Red Blood Count 4.23 4.0-5.20 10^6/uL Hemoglobin 11.8 L 12.2-16.2 g/dL Hematocrit 36.2 36.0-46.0 % Mean Corpuscular Volume 85.6 80.0-100.0 fL Mean Corpuscular Hemoglobin 27.8 L 28.0-32.0 pg Mean Corpuscular Hemoglobin Concent 32.4 32.0-36.0 g/dL Red Cell Distribution Width 14.2 11.8-14.3 % Platelet Count 246 140-450 10^3/uL Mean Platelet Volume 8.2 6.9-10.8 fL Neutrophils (%) (Auto) 63.8 37.0-80.0 % Lymphocytes (%) (Auto) 26.9 10.0-50.0 % Monocytes (%) (Auto) 7.4 0.0-12.0 % Eosinophils (%) (Auto) 1.2 0.0-7.0 % Basophils (%) (Auto) 0.7 0.0-2.0 % Neutrophils # (Auto) 5.1 1.6-8.6 10 ^3/uL Lymphocytes # (Auto) 2.1 0.4-5.4 10 ^3/uL Monocytes # (Auto) 0.6 0-1.3 10 ^3/uL Eosinophils # (Auto) 0.1 0-0.8 10 ^3/uL Basophils # (Auto) 0.1 0-0.2 10 ^3/uL Nucleated Red Blood Cells 0.0 % Sodium Level 144 136-145 mmol/L Potassium Level 4.0 3.5-5.1 mmol/L Chloride Level 108 H 98-107 mmol/L Carbon Dioxide Level 26 20-31 mmol/L Anion Gap 10 5-15 Blood Urea Nitrogen 16 9-23 mg/dL Creatinine 1.41 H 0.550-1.02 mg/dL Glomerular Filtration Rate Calc 41 >90 mL/min BUN/Creatinine Ratio 11.3 10.0-20.0 Serum Glucose 94 74-106 mg/dL Calcium Level 10.0 8.7-10.4 mg/dL Magnesium Level 1.8 1.6-2.6 mg/dL Total Bilirubin 0.3 0.2-1.0 mg/dL Direct Bilirubin < 0.1 <0.3 mg/dL Aspartate Amino Transferase (AST) 24 13-40 U/L Alanine Aminotransferase (ALT) 16 7-40 U/L Alkaline Phosphatase 131 H 46-116 U/L Troponin I High Sensitivity 11 </=34 ng/L B-Type Natriuretic Peptide 95.96 0-100 pg/mL Total Protein 7.4 5.7-8.2 g/dL Albumin 4.8 3.2-4.8 g/dL SEPSIS Sepsis Screen Date sepsis recognized/suspect: Aug 21, 2025 Time Sepsis recognized/suspect: 1407 Recent Procedure: No On Antibiotic Therapy: No Respiratory Rate >20: No Heart Rate >90: Yes Temp<36 C (96.8 F) or >38.3 C: No SBP <90 or MAP <65 mmHG: No New Acute Mental Status Change: No Is the patient on CPAP, BIPAP,: No Physician Orders Pantoprazole (Protonix) (08/22/25 10:00) Chest Xray 1 View (08/21/25 21:59) Urine Bacterial Culture (08/21/25 21:59) Ondansetron Hcl (Zofran) (08/21/25 22:00) Ipratropium Medneb (Atrovent Medneb) (08/21/25 22:00) Albuterol Medneb (Ventolin Medneb) (08/21/25 22:00) Ceftriaxone 1gm/50ml (Rocephin) (08/22/25 21:00) Left Lower Extremity W/O Con (08/21/25 21:59) Cardiac Diet-2gna,Lofat,Lochol (08/22/25 Breakfast) Metoprolol Xl Succinate (Toprol Xl) (08/22/25 10:00) Alprazolam Tablet (Xanax Tablet) (08/22/25 10:00) Cholecalciferol Tablet (Vitamin D3 Table (08/22/25 10:00) (Nf) Fenofibrate Micronized (Fenofibrate (08/22/25 10:00) Enoxaparin Sodium (Lovenox) (08/22/25 10:00) Creatine Kinase (08/22/25 00:34) Elly; Direct (08/22/25 00:34) Vital Signs Date Time Temp Pulse Resp B/P (MAP) Pulse Ox O2 Delivery O2 Flow Rate FiO2 08/22/25 00:15 137/60 08/22/25 00:12 75 18 137/60 (85) 96 08/21/25 23:16 78 16 147/80 96 0.0 21 08/21/25 19:22 Room Air* 0 21 08/21/25 18:42 147/80 08/21/25 18:40 147/80 08/21/25 18:27 78 16 147/80 (102) 96 08/21/25 17:53 83 16 96 Room Air 08/21/25 17:52 98.7 83 16 152/50 (84) 96 98.7 Laboratory Tests Test 08/21/25 15:08 White Blood Count 8.0 10^3/uL (4.4-10.8) Medications Medications Dose Ordered Sig/Roxanna Route Start Time Stop Time Status Last Admin Dose Admin Alprazolam 0.5 mg ONCE ONCE PO 08/21/25 22:00 08/21/25 22:20 DC 08/22/25 00:22 0.5 MG Ceftriaxone Sodium 50 ml @ 100 mls/hr ONCE ONCE IV 08/21/25 22:00 08/21/25 22:29 DC 08/22/25 00:22 100 MLS/HR Fentanyl Citrate 50 mcg ONCE ONCE IV 08/21/25 18:30 08/21/25 18:31 DC 08/21/25 18:42 50 MCG Furosemide 40 mg ONCE ONCE IV 08/21/25 17:15 08/21/25 17:16 DC 08/21/25 18:40 40 MG Nicotine 1 patch ONCE ONCE TD 08/21/25 22:00 08/21/25 22:20 DC 08/22/25 00:22 1 PATCH Ondansetron HCl 4 mg ONCE ONCE IV 08/21/25 18:30 08/21/25 18:31 DC 08/21/25 18:41 4 MG Pantoprazole Sodium 40 mg ONCE ONCE IV 08/21/25 22:00 08/21/25 22:20 DC 08/22/25 00:23 40 MG Assessment/Plan Assessment/Plan #Left leg swelling and pain due to left femoral head avascular necrosis #Left Hip and knee osteoarthrosis. #Osteoporosis - wells score 2 - Doppler of the bilateral leg shows no DVT - x-ray of the pelvis shows: no fractures, No acute osseous abnormality of the pelvis. - BNP 95.96 - UDS negative - CT left lower extremity without contrast: Trace anterior left distal thigh subcutaneous stranding. No acute osseous abnormality;Femoral head avascular necrosis without collapse.;The hip and knee joints are congruent with mild-to- moderate osteoarthrosis. - patient refusing to take any pain medication, give fentanyl 50 mg as needed #Chronic CKD, stage 3 #urinary tract infection -GFR 41, creatinine 1.41 -Urine analysis shows WBC 18, bacteria few, leukocyte esterase 2+, RBC 2 +, iron cost few -IV ceftriaxone 1 g daily -urine culture -avoid any nephrotoxic agents #hypertension #hyperlipidemia metoprolol XL 50 mg daily #GERD per orally pantoprazole 40 mg daily Zofran 4 mg IV q.4 PRN #history of anxiety disorder -Continue alprazolam 0.5 mg twice daily #COPD, not on exacerbation - continue 3 L of oxygen, maintain SpO2 between 88 -92 % - med nebulization ipratropium bromide q.6 PRN - med nebulization albuterol q.6 PRN - chest x-ray shows No acute cardiopulmonary disease. #Nicotine dependence - nicotine patch 21 mg given once #Obesity, BMI 29.5 kg/m2 patient was counseled regarding lifestyle modifications, healthy diet and need of weight loss and exercise for over 8 minutes GI prophylaxis: Protonix 40 mg p.o. daily DVT prophylaxis: Lovenox 40 mg subcutaneous daily Diet: cardiac diet Goals of care discussed with the patient for more than 27 minutes: DNR/DNI status Case discussed with Dr. Ross, patient Plan discussed with: Patient My Orders Orders - CARLEEN IVY RESIDENT Procedure Category Date Status Time Pantoprazole PHA 08/22/25 In Process (Protonix) 10:00 Chest Xray 1 View XY 08/21/25 Resulted 21:59 Urine Bacterial ASHANTI 08/21/25 In Process Culture 21:59 Ondansetron Hcl PHA 08/21/25 In Process (Zofran) 22:00 Ipratropium Medneb PHA 08/21/25 In Process (Atrovent Medneb) 22:00 Albuterol Medneb PHA 08/21/25 In Process (Ventolin Medneb) 22:00 Ceftriaxone 1gm/50ml PHA 08/22/25 In Process (Rocephin) 21:[address] 08/21/25 Resulted W/O Con 21:59 Cardiac DIET 08/22/25 Transmitted Diet-2gna,Lofat,Lochol Breakfast Metoprolol Xl PHA 08/22/25 In Process Succinate (Toprol Xl) 10:00 Alprazolam Tablet PHA 08/22/25 In Process (Xanax Tablet) 10:00 Cholecalciferol PHA 08/22/25 In Process Tablet (Vitamin D3 10:00 (Nf) Fenofibrate PHA 08/22/25 Pending Micronized 10:00 Enoxaparin Sodium PHA 08/22/25 In Process (Lovenox) 10:00 Creatine Kinase LAB 08/22/25 Logged 00:34 Elly; Direct LAB 08/22/25 Logged 00:34 Date of Service: Aug 22, 2025 Billing Provider: TRINY ROSS MD Common Visit Codes: [id number] INP/OBS CARE (HIGH) Secondary Visit Codes: [id number] CARE PLAN 30 MINUTES CARLEEN IVY RESIDENT Aug 22, 2025 00:37
[2025-08-22] MEDS: FENOFIBRATE MICRONIZED 134 MG PO SCH (10:00)
[2025-08-22] MEDS: PANTOPRAZOLE 40 MG/10 ML VIAL INJ IV SCH (10:06)
[2025-08-22] MEDS: ALPRAZolam 0.5 MG TAB PO SCH (10:07)
[2025-08-22] MEDS: ENOXAPARIN SOD 40 MG/0.4 ML SYRINGE SC SCH (10:07)
[2025-08-22] MEDS: CHOLECALCIFEROL (VITD3) 1,000UNIT=25mCg TAB PO SCH (10:07)
[2025-08-22] MEDS: METOPROLOL SUCCINATE XL 50 MG TAB PO SCH (10:09)
[2025-08-22] MEDS: ONDANSETRON HCL 4 MG/2 ML VIAL IV PRN (10:16)
[2025-08-22 10:33] LABS: Potassium 3.8 mmol/L (3.5-5.1); Sodium 143 mmol/L (136-145)
[2025-08-22 10:34] LABS: Anion Gap 10 (5-15); Carbon Dioxide 26 mmol/L (20-31); Chloride 107 mmol/L (98-107)
[2025-08-22 10:35] LABS: Calcium 9.8 mg/dL (8.7-10.4)
[2025-08-22 10:39] LABS: BUN/Creatinine Ratio 10.3 (10.0-20.0); Blood Urea Nitrogen 16 mg/dL (9-23)
[2025-08-22 10:41] LABS: Glucose 135 mg/dL (74-106)
[2025-08-22] MEDS: ONDANSETRON HCL 4 MG/2 ML VIAL IV ONE (16:19)
[2025-08-22] MEDS: MEROPENEM 1GM IVPB 50 ML IV ONE (16:20)
[2025-08-22] MEDS: MORPHINE SULFATE INJ 2 MG/ml SYRG IM ONE (16:23)
--- NOTE | 2025-08-22 17:56 | DVHPNRES ---
Progress Note Date Seen: Aug 22, 2025 Resident Creating Document: FIDEL SALVADOR RESIDENT Medical Necessity Reason Pt with a Central, PICC or Fol: No Subjective Review of Systems Sol Corado is a 69-year-old female with a history of osteoporosis, COPD on 3 L home oxygen, CKD, hypertension, hyperlipidemia, GERD, anxiety, uterine prolapse and recurrent UTIs who presented to the ED with acute worsening left hip and leg pain. She reports intermittent left hip pain since last Wednesday, which became severe this morning, rendering her unable to bear weight. Patient described pain as 10/10 in intensity, radiating down the entire left leg, associated with swelling and aggravated by movement or weight-bearing with no relieving factors. Due to known osteoporosis and swelling, her PCP advised ED evaluation for possible fracture. She also reports urinary frequency and hesitancy, similar to prior UTI last month. Denies dysuria or burning, nausea, fever, chills, vomiting or any abdominal pain. Past medical history: osteoporosis, COPD on 3 L home oxygen, CKD, hypertension, hyperlipidemia, GERD, anxiety ,uterine prolapse,recurrent UTIs Past surgical history: Left proximal humerus ORIF, appendectomy, cholecystectomy, hysterectomy, bilateral tubal ligation, right leg reconstruction surgery for tendon and ligament repair, benign breast lump of the left breast removed Family history: Siblings had lung cancer, stomach cancer, diabetes mellitus, CHF, mother due to CHF, father had emphysema Social history: Patient smokes 5 cigarettes/day and uses 2 nicotine patches 21 mg/day for the last year. She smoked 1 pack per day for 40 years. She denies drinking alcohol, or using any other illicit drugs Allergies: [place]( rashes, and swelling, nausea), sulfa antibiotics( face swelling), Dilaudid ( burning sensation all over the body) Home medication: Alprazolam 0.5 mg b.i.d., Zofran, pantoprazole, vitamin D3, fenofibrate, metoprolol 50 mg, inhalers for COPD PCP: Dr. Sanchez code status: DNR / DNI; no shock, okay for pressors Constitutional: No: Fever, Chills, Sweats, Weakness, Malaise, Other Eyes: No: Pain, Vision change, Conjunctivae inflammation, Eyelid inflammation, Other, Redness ENT: No: Ear pain, Ear discharge, Nose pain, Nose discharge, Nose congestion, Mouth pain, Mouth swelling, Throat pain, Throat swelling Respiratory: No: Cough, Dry, Shortness of breath, SOB with excertion, Wheezing, Hemoptysis, Pleuritic Pain, Sputum, Wheezing Cardiovascular: No: Chest Pain, Palpitations, Orthopnea, Paroxysmal Noc. Dyspnea, Edema, Lt Headedness Gastrointestinal: No: Nausea, Vomiting, Abdominal Pain, Diarrhea, Constipation, Melena, Hematochezia Genitourinary: No Dysuria; Frequency; No Incontinence, No Hematuria, No Retention; hesitancy Musculoskeletal: left hip pain, left leg pain Skin: No: Rash, Lesions, Jaundice, Bruising, Other Neurological: No: Weakness, Numbness, Incoordination, Change in speech, Confusion, Seizures, Other Allergies: Coded Allergies: Hydrocodone (Verified Allergy, Unknown, 05/23/24) Sulfa Antibiotics (Verified Allergy, Unknown, 10/31/23) Objective vital signs Vital Sign Date Time Temp Pulse Resp B/P (MAP) Pulse Ox O2 Delivery O2 Flow Rate FiO2 08/22/25 16:23 77 18 138/63 08/22/25 13:00 97.2 99 97.2 08/22/25 10:32 Nasal Cannula* 3 32 Total Intake and Output 08/21/25 08/21/25 08/22/25 15:00 23:00 07:00 Intake Total 50 ml Balance 50 ml medications Current Medications Medications Dose Ordered Sig/Roxanna Route Start Time Stop Time Status Last Admin Dose Admin Pantoprazole Sodium 40 mg DAILY IV 08/22/25 10:00 08/22/25 10:06 40 MG Ondansetron HCl 4 mg Q4HPRN PRN IV 08/21/25 22:00 08/22/25 10:16 4 MG Ipratropium [place] 0.5 mg Q4HPRN PRN NEB 08/21/25 22:00 Albuterol 2.5 mg Q4HPRN PRN NEB 08/21/25 22:00 Metoprolol Succinate 50 mg DAILY PO 08/22/25 10:00 08/22/25 10:09 50 MG Alprazolam 0.5 mg BID PO 08/22/25 10:00 08/22/25 10:07 0.5 MG Cholecalciferol 2,000 unit DAILY PO 08/22/25 10:00 08/22/25 10:07 2,000 UNIT Patient Own Medication 1 cap DAILY PO 08/22/25 10:00 Enoxaparin Sodium 40 mg DAILY SC 08/22/25 10:00 08/22/25 10:07 40 MG Meropenem 50 ml @ 17 mls/hr Q12HR IV 08/22/25 22:00 Nicotine 1 patch DAILY TD 08/23/25 10:00 Examination Patient is lying on the bed. General Appearance: Alert, Oriented X3, Cooperative, in acute distress HEENT: Atraumatic, Mucous membranes moist/pink Respiratory: Clear to auscultation, Normal air movement, No added sounds Cardiovascular: Regular rate, Normal S1, Normal S2, No murmurs Abdominal: Active bowel sounds, Soft, no distention, no tenderness Extremities: No edema, Normal pulses, tenderness on mild palpation of the left lateral thigh, left calf, no erythema Skin: No Significant rash, except past surgical scars Neuro: Normal speech, sensorimotor deficits none Psych/Mental Status: Mental status NL, Mood NL laboratory and microbiology Laboratory Tests 08/22/25 10:03 08/21/25 15:08 Test 08/22/25 10:03 Range/Units Serum Glucose 135 H 74-106 mg/dL Microbiology Date/Time Source Procedure Growth Status 08/21/25 19:28 Voided Urine Urine Culture - Preliminary Resulted Labs and/or images reviewed: Labs reviewed by me, Image(s) reviewed by me Problem List/Assessment/Plan Problem List/Assessment/Plan #Acute intractable pain in left leg and leg swelling ,likely due to Left femoral head avascular necrosis causing #Left Hip and knee osteoarthrosis. #Osteoporosis - wells score 2 - Doppler of the bilateral leg shows no DVT - x-ray of the pelvis shows: no fractures, No acute osseous abnormality of the pelvis. - BNP 95.96 - UDS negative - CT left lower extremity without contrast: Trace anterior left distal thigh subcutaneous stranding. No acute osseous abnormality;Femoral head avascular necrosis without collapse.;The hip and knee joints are congruent with [id number] osteoarthrosis. - placed orthopedic consult,pending -patient on morphine 1mg q4 prn with zofran #Acute UTI #MIKAELA on Chronic CKD, stage 3 -GFR 41, creatinine 1.41 -Urine analysis shows WBC 18, bacteria few, leukocyte esterase 2+, RBC 2 + -IV ceftriaxone 1 gm daily -urine culture >100,000 gram negative rods -avoid any nephrotoxic agents #Chronic respiratory failure due to COPD, on 3L home oxygen - continue 3 L of oxygen, maintain SpO2 between 88 -92 % - med nebulization ipratropium bromide q.6 PRN - med nebulization albuterol q.6 PRN - chest x-ray shows No acute cardiopulmonary disease. #Hypertension,controlled #Hyperlipidemia -reconcile home medication metoprolol XL 50 mg daily #GERD per orally pantoprazole 40 mg daily Zofran 4 mg IV q.4 PRN #History of anxiety disorder -Continue alprazolam 0.5 mg twice daily #Nicotine dependence - nicotine patch 21 mg HS #Obesity, BMI 29.5 kg/m2 patient was counseled regarding lifestyle modifications, healthy diet and need of weight loss and exercise GI prophylaxis: Protonix 40 mg p.o. daily DVT prophylaxis: Lovenox 40 mg subcutaneous daily Diet: cardiac diet Goals of care discussed with the patient for more than 27 minutes: DNR/DNI status Plan discussed with Dr Arriaga Plan discussed with: Patient, Spouse My Orders My Orders Orders - FIDEL SALVADOR RESIDENT Procedure Category Date Status Time * Orthopedic Consult CONS 08/22/25 Transmitted 09:46 Nicotine 21mg/24hr PHA 08/23/25 In Process (Nicoderm 21mg/24hr) 10:00 Date of Service: Aug 22, 2025 Billing Provider: ELA ARRIAGA MD Common Visit Codes: [id number] INP/OBS CARE(HIGH) FIDEL SALVADOR RESIDENT Aug 22, 2025 17:56 ELA ARRIAGA MD Aug 22, 2025 21:58
--- NOTE | 2025-08-22 20:02 | DVHINCON2 ---
Consult Note Consult Consult Note History of Present Illness: Ms. Horton is a 79 year-old female who presented to the Emergency Department yesterday with atraumatic, sudden worsening of her left hip pain.The patient reports a history of intermittent left hip pain, though symptoms have never been as severe as during this episode. She denies any recent fall, trauma, or back pain.No numbness/tingling, Lower extremity weakness, Left hip erythema, edema, warmth reported by patient. No recent procedure or surgery to left hip reported. No urinary or fecal in continence or any other LBP red flags reported. Imaging performed in the ER included an X-ray and CT of the left hip. MRI findings: Early avascular necrosis (AVN) of the left femoral head, without evidence of collapse. No acute fracture or dislocation identified. Patient reports persistent groin and lateral hip pain, especially worsening with weight bearing attempt and range of motion. Pain is described as moderate to severe. Past Medical History: Chronic Left hip pain osteoporosis, COPD on 3 L home oxygen, CKD, hypertension, hyperlipidemia, GERD, anxiety uterine prolapse Medications: Current inpatient pain regimen per Hospitalist Team Physical Examination: General: Alert, oriented 3, in mild distress due to hip pain. Inspection: No erythema, swelling, or deformity of the left hip. Skin intact. Palpation: Left groin: Tenderness to palpation. Mild pain with palpation Greater trochanter region: Moderate to severe tenderness to palpation consistent with trochanteric bursitis. No erythema, edema, or warmth appreciated. Range of Motion: grossly intact but painful Painful and limited with internal and external rotation. VALDO (Patricks) and FADIR tests: Positive on the left, reproducing groin pain. Straight Leg Raise (SLR): Able to perform. Neurovascular: Distal motor and sensory function intact. Pulses palpable. Back: No lumbar spine tenderness or pain reported. Imaging / Studies: Left Hip CT: Findings consistent with avascular necrosis (AVN) of the left femoral head, without subchondral collapse. No acute fracture or joint effusion. Left Hip X-ray: Degenerative changes noted; no acute fracture or dislocation. Assessment: 1. Left femoral head avascular necrosis (early stage, no collapse) 2. Left greater trochanteric bursitis 3. Acute exacerbation of chronic left hip pain Plan / Recommendations: TO MEDICINE/HOSPPITALIST TEAM 1. Greater trochanteric bursa injection with corticosteroid and local anesthetic performed today with good tolerance.ORAL CONSENT OBTAINED, Treated with 2 ml of Depo medrol 40mg/ml mix with 4ML OF 1%Lidocaine without epi to left GT max TTP site. 2. Interventional Radiology (IR) referral placed for intra-articular hip corticosteroid injection for pain management if she continues to have left groin pain and unable to WBAT. 3. Physical Therapy referral recommended through the Hospitalist Team to assist with mobility and gait training WBAT with walker as long as pain is well controlled. 4. Pain control: Continue inpatient pain regimen per Hospitalist Team. 5. Weight bearing: As tolerated (WBAT) with assistance as needed/Walker. 6. Discharge planning: May be discharged once ambulating safely with controlled pain, else obtain MRI left hip if needed and reconsult Ortho. Outpatient follow-up in the Orthopedic Clinic for ongoing management of AVN and bursitis for furthe eval and treatment with [facility] 7. Future consideration: Serial imaging and evaluation for progression of AVN. Plan discussed with: Patient, Other (bedside nurse) Visit Coding Surgery Date of Service if different f: Aug 22, 2025 Billing Provider: SHANAE HERNANDEZ Surgery Visit Codes: 10619 - INP CONSULT <55 MIN SHANAE HERNANDEZ Aug 22, 2025 20:02
[2025-08-22] MEDS: MEROPENEM 1GM IVPB 50 ML IV SCH (22:08)
[2025-08-23 01:00] VITALS: BP 116/61; PULSE 62; RESP 18; TEMP 98.7; O2SAT 96
[2025-08-23 05:00] VITALS: BP 127/49; PULSE 76; RESP 18; TEMP 97.8; O2SAT 94
[2025-08-23 06:03] LABS: Hematocrit 33.9 % (36.0-46.0); Hemoglobin 11.1 g/dL (12.2-16.2); Mean Corpuscular Hemoglobin 28.0 pg (28.0-32.0); Mean Corpuscular Volume 85.3 fL (80.0-100.0); Nucleated Red Blood Cells % 0.1 %
[2025-08-23 06:13] LABS: Potassium 4.2 mmol/L (3.5-5.1); Sodium 144 mmol/L (136-145)
[2025-08-23 06:14] LABS: Anion Gap 8 (5-15); Carbon Dioxide 27 mmol/L (20-31); Chloride 109 mmol/L (98-107)
[2025-08-23 06:15] LABS: Calcium 9.1 mg/dL (8.7-10.4)
[2025-08-23 06:20] LABS: BUN/Creatinine Ratio 11.6 (10.0-20.0); Blood Urea Nitrogen 17 mg/dL (9-23)
[2025-08-23 06:25] LABS: Glucose 107 mg/dL (74-106)
[2025-08-23] MEDS: NICOTINE 21MG/24 HR TOPICAL PATCH TD ONE (07:41)
[2025-08-23 07:54] VITALS: O2SAT 93
[2025-08-23 09:00] VITALS: BP 138/83; PULSE 72; RESP 18; TEMP 98.4; O2SAT 96
[2025-08-23] MEDS: NICOTINE 21MG/24 HR TOPICAL PATCH TD SCH (09:21)
[2025-08-23 13:00] VITALS: BP 126/66; PULSE 61; RESP 16; TEMP 98.6; O2SAT 95
[2025-08-23] MEDS ORDERED: NITR-52 PO (15:57)
[2025-08-23 17:00] VITALS: BP 119/53; PULSE 67; RESP 18; TEMP 98.1; O2SAT 98
--- NOTE | 2025-08-24 11:18 | DVHDSRES ---
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 Labs/Diagnostic Data: Laboratory Results Test 08/23/25 05:15 08/22/25 04:58 08/21/25 19:28 08/21/25 15:08 White Blood Count 5.5 10^3/uL (4.4-10.8) Red Blood Count 3.97 10^6/uL (4.0-5.20) Hemoglobin 11.1 g/dL (12.2-16.2) Hematocrit 33.9 % (36.0-46.0) Mean Corpuscular Volume 85.3 fL (80.0-100.0) Mean Corpuscular Hemoglobin 28.0 pg (28.0-32.0) Mean Corpuscular Hemoglobin Concent 32.8 g/dL (32.0-36.0) Red Cell Distribution Width 13.7 % (11.8-14.3) Platelet Count 219 10^3/uL (140-450) Mean Platelet Volume 8.2 fL (6.9-10.8) Neutrophils (%) (Auto) 58.9 % (37.0-80.0) Lymphocytes (%) (Auto) 29.8 % (10.0-50.0) Monocytes (%) (Auto) 9.3 % (0.0-12.0) Eosinophils (%) (Auto) 1.3 % (0.0-7.0) Basophils (%) (Auto) 0.7 % (0.0-2.0) Neutrophils # (Auto) 3.2 10 ^3/uL (1.6-8.6) Lymphocytes # (Auto) 1.6 10 ^3/uL (0.4-5.4) Monocytes # (Auto) 0.5 10 ^3/uL (0-1.3) Eosinophils # (Auto) 0.1 10 ^3/uL (0-0.8) Basophils # (Auto) 0 10 ^3/uL (0-0.2) Nucleated Red Blood Cells 0.1 % Sodium Level 144 mmol/L (136-145) Potassium Level 4.2 mmol/L (3.5-5.1) Chloride Level 109 mmol/L (98-107) Carbon Dioxide Level 27 mmol/L (20-31) Anion Gap 8 (5-15) Blood Urea Nitrogen 17 mg/dL (9-23) Creatinine 1.46 mg/dL (0.550-1.02) Glomerular Filtration Rate Calc 39 mL/min (>90) BUN/Creatinine Ratio 11.6 (10.0-20.0) Serum Glucose 107 mg/dL (74-106) Calcium Level 9.1 mg/dL (8.7-10.4) Creatine Kinase 144 U/L (34-145) Anti-Nuclear Antibody Screen Negative (Negative) Urine Color Colorless (Yellow) Urine Clarity Clear (Clear) Urine pH 5.5 (5.0-9.0) Urine Specific [place] 1.008 (1.001-1.035) Urine Protein Negative (Negative) Urine Ketones Negative (Negative) Urine Blood Negative /uL (Negative) Urine Nitrite Negative (Negative) Urine Bilirubin Negative (Negative) Urine Urobilinogen Normal mg/dL (Negative) Urine Leukocyte Esterase 2+ /uL (Negative) Urine RBC 2 /hpf (0 - 4) Urine Microscopic WBC 18 /HPF (0-5) Urine Squamous Epithelial Cells None seen /hpf (<5) Urine Bacteria Few /hpf (None Seen) Urine Hyaline Casts Few /lpf (0 - 2) Urine Glucose Normal mg/dL (Normal) Urine Opiates Screen Neg (NEGATIVE) Urine Fentanyl Screen Pos (NEGATIVE) Urine Barbiturates Screen Neg (NEGATIVE) Urine Phencyclidine Screen Neg (NEGATIVE) Urine Amphetamines Screen Neg (NEGATIVE) Urine Benzodiazepines Screen Pos (NEGATIVE) Urine Cocaine Screen Neg (NEGATIVE) Urine Cannabinoids Screen Neg (NEGATIVE) Magnesium Level 1.8 mg/dL (1.6-2.6) Total Bilirubin 0.3 mg/dL (0.2-1.0) Direct Bilirubin < 0.1 mg/dL (<0.3) Aspartate Amino Transferase (AST) 24 U/L (13-40) Alanine Aminotransferase (ALT) 16 U/L (7-40) Alkaline Phosphatase 131 U/L (46-116) Troponin I High Sensitivity 11 ng/L (</=34) B-Type Natriuretic Peptide 95.96 pg/mL (0-100) Total Protein 7.4 g/dL (5.7-8.2) Albumin 4.8 g/dL (3.2-4.8) Other Laboratory Tests 08/23/25 05:15 Brief Hx & Hospital Course: Sol Corado is a 69-year-old female with a history of osteoporosis, COPD on 3 L home oxygen, CKD, hypertension, hyperlipidemia, GERD, anxiety, uterine prolapse and recurrent UTIs who presented to the ED with acute worsening left hip and leg pain. She reported intermittent left hip pain since last Wednesday, which became severe on the day of admission, rendering her unable to bear weight. Patient described pain as 10/10 in intensity, radiating down the entire left leg, associated with swelling and aggravated by movement or weight-bearing with no relieving factors. Due to known osteoporosis and swelling, her PCP advised ED evaluation for possible fracture. She also reported urinary frequency and hesitancy, similar to prior UTI last month but denied any dysuria or burning, nausea, fever, chills, vomiting or any abdominal pain. 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 Patient was given greater trochanteric bursa injection with corticosteroid and local anesthetic on the left side by Orthopedics. Patient was evaluated by Physical therapy and was able to walk 60 ft with front wheel walker. Urine culture came back positive for Klebsiella pneumoniae. Patient was discharged home with home health in a stable condition with a front wheel walker on nitrofurantoin for 5 days. All medications and recommendations were thoroughly explained to the patient and she demonstrated understanding of the same. Patient was asked to follow-up in DC clinic and with PCP in 1-2 weeks. Past medical history: osteoporosis, COPD on 3 L home oxygen, CKD, hypertension, hyperlipidemia, GERD, anxiety ,uterine prolapse,recurrent UTIs Past surgical history: Left proximal humerus ORIF, appendectomy, cholecystectomy, hysterectomy, bilateral tubal ligation, right leg reconstruction surgery for tendon and ligament repair, benign breast lump of the left breast removed Family history: Siblings had lung cancer, stomach cancer, diabetes mellitus, CHF, mother due to CHF, father had emphysema Social history: Patient smokes 5 cigarettes/day and uses 2 nicotine patches 21 mg/day for the last year. She smoked 1 pack per day for 40 years. She denies drinking alcohol, or using any other illicit drugs Allergies: [place]( rashes, and swelling, nausea), sulfa antibiotics( face swelling), Dilaudid ( burning sensation all over the body) Home medication: Alprazolam 0.5 mg b.i.d., Zofran, pantoprazole, vitamin D3, fenofibrate, metoprolol 50 mg, inhalers for COPD PCP: Dr. Sanchez code status: DNR / DNI; no shock, okay for pressors Patient is lying on the bed. General Appearance: Alert, Oriented X3, Cooperative, in acute distress HEENT: Atraumatic, Mucous membranes moist/pink Respiratory: Clear to auscultation, Normal air movement, No added sounds Cardiovascular: Regular rate, Normal S1, Normal S2, No murmurs Abdominal: Active bowel sounds, Soft, no distention, no tenderness Extremities: No edema, Normal pulses, tenderness on mild palpation of the left lateral thigh, left calf, no erythema Skin: No Significant rash, except past surgical scars Neuro: Normal speech, sensorimotor deficits none Psych/Mental Status: Mental status NL, Mood NL Operations or Procedures 1.PROCEDURE(s): LLDVT - LT Lower DVT REASON: dvt ORDER NUMBER(s): [id number], ACCESSION NUMBER(s): [id number] ADDENDUM Report has been finalize DICTATED BY: RIC LUO MD DICTATED DATE/TIME: 08/21/25 0320 SIGNED BY: RIC LUO MD SIGNED DATE/TIME: 08/21/25 5872 CC: LEFT LOWER EXTREMITY VENOUS DUPLEX REASON FOR EXAMINATION: Left lower extremity pain and edema. COMPARISON: US BILAT LOWER DVT on DOS: 05/24/24 TECHNIQUE: Using real-time freeze-frame technique with a high-frequency transducer, multiple longitudinal and transverse sections were obtained. Simultaneous color flow and spectral Doppler imaging was performed. FINDINGS: There is good visualization of the deep venous system with no intraluminal filling defects identified. Normal venous compressibility is seen and there is flow augmentation. Color flow Doppler imaging is unremarkable. IMPRESSION: NO EVIDENCE OF DEEP VENOUS THROMBOSIS. 2.PROCEDURE(s): PELVS - PELVIS AP REASON: pain ORDER NUMBER(s): [id number], ACCESSION NUMBER(s): [id number] CLINICAL INDICATION: pain TECHNIQUE: 1-view XY PELVIS AP Comparison: None FINDINGS: No acute fracture or dislocation. Mild degenerative changes. Right lower quadrant surgical clips. IMPRESSION: 1. No acute osseous abnormality of the pelvis. 3.PROCEDURE(s): CXR1 - CHEST XRAY 1 VIEW REASON: sob ORDER NUMBER(s): [id number], ACCESSION NUMBER(s): [id number] CHEST RADIOGRAPH Indication: sob Technique: 1 view Comparison: XY CHEST PORTABLE on DOS: 06/07/24, XY CHEST PORTABLE on DOS: 05/30/24, XY CHEST PORTABLE on DOS: 05/23/24, XY CHEST PORTABLE on DOS: 04/20/24 FINDINGS: Lines and Tubes: None. Lungs/Pleura: Lungs appear hyperexpanded. No focal consolidation, pleural effusion or pneumothorax. Cardiomediastinum: Unremarkable. Other: No acute osseous abnormality. Partially imaged left humerus internal fixation hardware. IMPRESSION: Emphysematous appearing lungs without acute cardiopulmonary abnormality. 4.PROCEDURE(s): LLEX - LEFT LOWER EXTREMITY W/O CON REASON: left thigh pain and swelling ORDER NUMBER(s): [id number], ACCESSION NUMBER(s): [id number] EXAMINATION: CT LEFT LOWER EXTREMITY W/O CON INDICATION: left thigh pain and swelling COMPARISON: None TECHNIQUE: CT of the left femur was performed without contrast. Volume transverse images were obtained reconstructed in multiple planes using bone and soft tissue algorithms. CTDI vol: 15 mGy. DLP: 997 mGy-cm. FINDINGS: No acute fracture. The hip and knee joints are congruent with [id number] osteoarthrosis. No joint effusion. 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 Trace anterior subcutaneous stranding of the distal thigh superior to the patella. No acute finding of the imaged pelvic contents, muscles or tendons. Colonic diverticulosis. IMPRESSION: 1. Trace anterior left distal thigh subcutaneous stranding. No acute osseous abnormality. 2. 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 Condition at Discharge: Fair Final Diagnosis/Problems List Acute intractable pain in left leg and leg swelling ,likely due to Left femoral head avascular necrosis causing Left Hip and knee osteoarthrosis. Osteoporosis Acute UTI,gram negative rods MIKAELA on Chronic CKD, stage 3 Chronic respiratory failure due to COPD, on 3L home oxygen Hypertension,controlled Hyperlipidemia GERD History of anxiety disorder Nicotine dependence Obesity, BMI 29.5 kg/m2 Discharge Disposition: Home with Health Services Discharge Instruct/Medications Diet: Cardiac 2g Na,low cholest Activity: No Restrictions, As Tolerated Follow Up/Referral: follow up in dc clinic in 1-2 weeks follow up with PCP in 1-2 weeks Medications: nitrofurantoin for 5 days Scheduled Albuterol Sulfate (Albuterol Sulfate), 2.5 MG NEB Q4HR, (Reported) Alprazolam (Alprazolam), 0.5 TAB PO TID, (Reported) Cholecalciferol (Vitamin D3), 1 TAB PO DAILY, (Reported) Famotidine (Pepcid Tablet), 1 TAB PO BID, (Reported) Fenofibrate Micronized (Fenofibrate), 1 CAP PO DAILY, (Reported) Metoprolol Succinate (Metoprolol Succinate Er), 50 MG PO DAILY Nitrofurantoin (Nitrofurantoin), 1 CAP PO BID Scheduled PRN Levalbuterol HCl (Levalbuterol), 1.25 MG IN Q4HP PRN Discontinued Medications Albuterol Sulfate (Albuterol Sulfate), 90 MCG PO Q6HP PRN for SHORTNESS OF BREATH, (Reported) Famotidine (Famotidine), 1 TAB PO DAILY, (Reported) Methylprednisolone (Medrol Dosepak), 4 MG PO UD Pantoprazole Sodium Sesquihydr (Protonix), 40 MG PO DAILY, (Reported) Discharge Statement: "Patient was advised to return to the ER or call 911 if any headaches, dizziness, shortness of breath, chest pain, abdominal pain, bleeding, fevers, or worsening of medical condition. Patient was counseled about treatment plan, medications, possible side effects, patientverbalized understanding. All questions were answered to the best of my ability. This discharge took greater then 30 minutes in planning, reviewing documentation, counseling the patient, and discussing with other team members." ASSESSMENT ASSESSMENT Assessment early avascular necosis of left femoral head Date of Service: Aug 23, 2025 Billing Provider: ELA ARRIAGA MD Common Visit Codes: 87061-SCU/OBS DISCH DAY >30min FIDEL SALVADOR RESIDENT Aug 23, 2025 16:04 ELA ARRIAGA MD Aug 24, 2025 23:26
== END 2025-08-23 17:50 | disposition home health service (06) | DRG 554 ==
LOC: ER 14:06 → OVERFLOW 08-22 00:35 → WEST WING 08-22 10:48
PROVIDERS: ADMIT Internal Medicine; ATTEND Internal Medicine
DX: M87.852 Other osteonecrosis, left femur (principal); N39.0 Urinary tract infection, site not specified; N17.9 Acute kidney failure, unspecified; J96.10 Chronic respiratory failure, unspecified whether with hypoxia or hypercapnia; M70.62 Trochanteric bursitis, left hip; M16.12 Unilateral primary osteoarthritis, left hip; M81.0 Age-related osteoporosis without current pathological fracture; G89.29 Other chronic pain; J44.9 Chronic obstructive pulmonary disease, unspecified; N18.30 Chronic kidney disease, stage 3 unspecified; K21.9 Gastro-esophageal reflux disease without esophagitis; I16.0 Hypertensive urgency; I12.9 Hypertensive chronic kidney disease with stage 1 through stage 4 chronic kidney disease, or unspecified chronic kidney disease; E78.5 Hyperlipidemia, unspecified; N18.9 Chronic kidney disease, unspecified; F41.9 Anxiety disorder, unspecified; M17.12 Unilateral primary osteoarthritis, left knee; E66.9 Obesity, unspecified; Z68.29 Body mass index [BMI] 29.0-29.9, adult; Z90.49 Acquired absence of other specified parts of digestive tract; Z99.81 Dependence on supplemental oxygen; Z90.710 Acquired absence of both cervix and uterus
CPT/HCPCS: 36415; 71045; 72170; 73700; 80048; 80076; 80307; 81001; 82550; 83735; 83880; 84484; 85025; 86038; 87086; 87088; 87186; 93971; 96374; 96375; 97163; G0378; J2185; J2405; J2470